=== PATIENT | male | born 1940 | race Hispanic/Latino ===

== ENCOUNTER 2021-07-16 16:11 | Outpatient (CLI) | payer MEDICARE, OTHER, SELFPAY ==
--- NOTE | ~2021-07-16 | XR_ITS ---
XR chest 2V 07/16/2021 16:44 Indication: Cough Procedure: 2 view chest Comparison: No prior studies for comparison. Findings: The lungs are hyperinflated which is consistent with, but not diagnostic of chronic obstruc tive pulmonary disease. There is coarse interstitial infiltrates of the mid and upper lungs. There is apical pleural thickening/scarring. Heart size normal. No significant pleural effusion. No pneumotho rax. Impression: 1: Coarse bilateral interstitial infiltrates of the mid and upper lungs, likely chronic. Reviewed, dictated and finalized at location A. Impression: 1: Coarse bilateral interstitial infiltrates of the mid and upper lungs, likely chronic.
--- NOTE | ~2021-07-16 | XR_ITS ---
XR lumbar spine 2-3V 07/16/2021 16:44 Indication: Back pain Procedure: 3 views lumbar spine Comparison: No prior studies for comparison. Findings: There is sacralization of L5. There is superior endplate compression fracture of L1 and bur st fracture of L4. Mild disc narrowing at L5-S1. There are mild superior endplate compression fractur es of T10 and T11. No spondylolisthesis. Osteopenia. Sacral foramen are grossly symmetric. Impression: 1: Multiple age-indeterminate fractures of the lower thoracic and lumbar spine with burst fracture at L4. Reviewed, dictated and finalized at location A. Impression: 1: Multiple age-indeterminate fractures of the lower thoracic and lumbar spine with burst fracture at L4.
== END 2021-07-16 16:12 | disposition home or self-care (01) ==
LOC: ANHIMG 16:19
PROVIDERS: PCP Emergency Medicine; Visit Provider Emergency Medicine
DX: M48.54XA Collapsed vertebra, not elsewhere classified, thoracic region, initial encounter for fracture (principal); M48.56XA Collapsed vertebra, not elsewhere classified, lumbar region, initial encounter for fracture; R91.8 Other nonspecific abnormal finding of lung field
CPT/HCPCS: 71046; 72100

== ENCOUNTER 2021-08-03 10:12 | Emergency (ER) | payer MEDICARE, SELFPAY ==
--- NOTE | ~2021-08-03 | CT_ITS ---
EXAMINATION: CT abdomen pelvis wo con EXAM DATE: 08/03/2021 15:17 INDICATION: Hematuria. TECHNIQUE: Spiral CT of the abdomen and pelvis was performed without contrast. Axial, coronal and sag ittal images were reviewed. The dose-length product (DLP) for this examination was 208.05 mGy-cm. T he exposure was tailored according to patient size (auto mA exposure control), and iterative reconstr uction (ASIR) was used as additional dose reduction technique. There is no prior study for compariso n. FINDINGS: There is no nephrolithiasis or hydronephrosis. There is an exophytic fluid density left nina al lesion measuring 2 cm consistent with cyst. Severe prostatomegaly, with the prostate measuring exp lained 5 cm transverse dimensions. The bladder is unremarkable. The liver, spleen, adrenal glands a nd pancreas are unremarkable. Gallbladder is unremarkable. No biliary obstruction. There is no ret roperitoneal or pelvic lymphadenopathy. The appendix is normal. The stomach and small bowel are unremarkable. There is expected amount of c olonic stool. No free intraperitoneal gas. The heart is normal in size. There are no pericardial or pleural effusions. Mild basilar interstitial lung disease. Chronic burst fractures at L2 and L4, probably unchanged compared to an x-ray from 07/16/2021, with mod erate loss of vertebral body height centrally at L2, moderate to severe loss at L4. There is 3 mm ret ropulsion superior endplate of L2. IMPRESSION: 1. No nephrolithiasis, hydronephrosis or acute intra-abdominal findings. 2. Severe prostatomegaly. 3. Mild interstitial lung disease. 4. Chronic appearing L2, L4 burst fractures. Reviewed, dictated and finalized at location A.
[2021-08-03 10:29] VITALS: BP 130/68; PULSE 111; RESP 18; TEMP 36.3; O2SAT 96
[2021-08-03 11:21] LABS: Add Urine Microscopic? YES; Appearance Urine Clear (Clear); Bilirubin Urine Negative (Negative); Blood Urine 3+ (Negative); Color Urine Yellow (Yellow); Glucose Urine UA Negative (Negative); Ketones Urine Negative (Negative); Leukocyte Esterase Ur Negative LEU/UL (Negative); Mucus Urine Rare /lpf; Nitrate Urine Negative (Negative); Protein Urine Negative (Negative); RBC Urine 21-50 /hpf (0-2); Specific Grav Ur 1.019 (1.001-1.035); Urobilinogen Urine Negative mg/dL (<2.0); WBC Urine 0-3 /hpf
--- NOTE | 2021-08-03 14:22 | ED.GENADULT ---
HPI - General Adult General Chief complaint: Urogenital-Male Stated complaint: Blood in Urine Time Seen by Provider: 08/03/21 14:21 Source: patient and family (daughter is translating) Mode of arrival: ambulatory Limitations: no limitations History of Present Illness HPI narrative: 81-year-old male who is here for urinary burning and frequency. He was recently treated for urinary tract infection by his primary care physician, he was treated with Macrobid. He states that that did help somewhat but the symptoms have persisted. He denies any flank pain or bladder pain and he states that he does see some blood in his urine occasionally. Denies any fever chills or bowel dysfunction. Onset (ago): week(s) Associated symptoms: denies other symptoms Related Data Allergies Allergy/AdvReac Type Severity Reaction Status Date / Time No Known Allergies Allergy Verified 08/03/21 15:57 Review of Systems Review of Systems: All systems reviewed & are unremarkable except as noted in HPI and below Exam Const: General: no acute distress and alert Orientation/consciousness: patient oriented x3 HENMT: Mouth: Yes moist mucous membranes Eyes: Pupils: Equal, round and reactive pupils present Resp: Effort & Inspection: normal respiratory effort Auscultation: clear to auscultation bilaterally Cardio: Rate: regular rate Rhythm: regular rhythm GI: GI Palp: Yes Soft to palpation Auscultation: normal bowel sounds : General: Yes bladder normal to palpation Back/Spine/Pelvis: Back: no CVA tenderness Skin: General skin exam: normal color Neuro: General: patient oriented x3 and moves all extremities Extrem: General: normal to inspection Psych: Mental Status: mental status grossly normal Course Course Emergency Course: CT shows significant prostatomegaly. This problem was discussed with the patient. Prior to going to CT. Will treat with Flomax and Bactrim as he still has urinary pain and this has better prostate penetration. They do have a recommendation for a urologist from their primary care and will make an appointment this week. Vital Signs Vital signs: Vital Signs Temperature 36.3 C L 08/03/21 10:29 Pulse Rate 111 H 08/03/21 10:29 Respiratory Rate 18 08/03/21 10:29 Blood Pressure 130/68 08/03/21 10:29 Pulse Oximetry 96 08/03/21 10:29 Temperature 36.3 C L 08/03/21 10:29 Pulse Rate 111 H 08/03/21 10:29 Respiratory Rate 18 08/03/21 10:29 Blood Pressure 130/68 08/03/21 10:29 Pulse Oximetry 96 08/03/21 10:29 Medical Decision Making Vital Signs Vital Signs: Vital Signs Temperature 36.3 C L 08/03/21 10:29 Pulse Rate 111 H 08/03/21 10:29 Respiratory Rate 18 08/03/21 10:29 Blood Pressure 130/68 08/03/21 10:29 Pulse Oximetry 96 08/03/21 10:29 Temperature 36.3 C L 08/03/21 10:29 Pulse Rate 111 H 08/03/21 10:29 Respiratory Rate 18 08/03/21 10:29 Blood Pressure 130/68 08/03/21 10:29 Pulse Oximetry 96 08/03/21 10:29 Lab Data Labs: Lab Results 08/03/21 Range/Units 10:27 Urine Color Yellow (Yellow) Urine Appearance Clear (Clear) Urine pH 6.0 (5.0-9.0) Ur Specific [place] 1.019 (1.001-1.035) Urine Protein Negative (Negative) mg/dL Urine Glucose (UA) Negative (Negative) mg/dL Urine Ketones Negative (Negative) mg/dL Ur Blood (Man) 3+ H (Negative) Urine Nitrate Negative (Negative) Urine Bilirubin Negative (Negative) Urine Urobilinogen Negative (<2.0) mg/dL Leukocyte Esterase Rfl Negative (Negative) SHILA/UL Urine RBC 21-50 H (0-2) /hpf Urine WBC 0-3 /hpf Urine Mucus Rare /lpf Discharge Plan Discharge Clinical Impression: Acute prostatitis with hematuria Patient Disposition: Home, Self-Care Condition: Stable Instructions: Antibiotic Form, Prostatitis (ED), Enlarged Prostate (BPH) (ED) Additional Instructions: Take both medications as directed. Drink plenty of water. Follow-up with ur
[2021-08-03 15:39] LABS: Anion Gap 9 mmol/L (8-16); Blood Urea Nitrogen 18 mg/dL (9-20); Calcium 9.1 mg/dL (8.4-10.2); Carbon Dioxide 26 mmol/L (22-30); Chloride 106 mmol/L (98-107); Estimated CRCL calculation 61 ml/min; Estimated Glomerular Filt Rate > 60; Glucose 94 mg/dL (65-110); Potassium 3.9 mmol/L (3.4-5.0); Sodium 141 mmol/L (137-145)
[2021-08-03 15:40] LABS: Basophils Absolute Auto 0.1 K/mm3 (0.0-0.1); Basophils Percent Auto 0.7 % (0.2-1.2); Eosinophils Absolute Auto 0.3 K/mm3 (0-0.3); Eosinophils Percent Auto 4.5 % (0-4.4); Hemoglobin 14.2 g/dL (14.0-18.0); Immature Granulocyte Absolute 0.02 K/mm3 (0.00-0.031); Immature Granulocyte Percent A 0.3 % (0-0.5); Lymphocytes Absolute Auto 2.31 K/mm3 (0.9-3.2); Lymphocytes Percent Auto 34.5 % (18.3-44.2); Mean Corpuscular HGB Conc 34.6 g/dl (32-36); Mean Corpuscular Hemoglobin 32.1 pg (26-34); Mean Corpuscular Volume 92.8 fl (80-100); Mean Platelet Volume 9.6 fl (7.4-10.4); Monocytes Absolute Auto 0.6 K/mm3 (0.1-0.6); Monocytes Percent Auto 8.4 % (2.6-8.5); Neutrophils Absolute Auto 3.5 K/mm3 (1.3-6.7); Neutrophils Percent Auto 51.6 % (45.5-73.1); Platelet Count Result 187 k/mm3 (150-375); Red Blood Count 4.42 M/mm3 (4.6-6.20); Red Cell Distribution Width 13.4 % (11.5-14.5); White Blood Count 6.7 K/mm3 (4.5-10.0)
[2021-08-03 16:30] VITALS: BP 122/79; PULSE 70; RESP 16; O2SAT 100
== END 2021-08-03 16:30 | disposition home or self-care (01) ==
PROVIDERS: Physician Assistant; Emergency Provider Emergency Medicine; PCP Emergency Medicine
DX: N41.9 Inflammatory disease of prostate, unspecified (principal); R31.9 Hematuria, unspecified
CPT/HCPCS: 36415; 74176; 80048; 81001; 85025; 99284

== ENCOUNTER 2021-08-07 19:33 | Emergency (ER) | payer MEDICARE, SELFPAY ==
[2021-08-07 20:04] VITALS: BP 129/63; PULSE 87; RESP 20; TEMP 36.6; O2SAT 97
--- NOTE | 2021-08-08 02:14 | ED_ITS ---
HPI - Male Genitourinary General Chief complaint: Urogenital-Male Stated complaint: difficulty urinating Time Seen by Provider: 08/08/21 01:31 History of Present Illness HPI Narrative: Patient is an 81-year-old male who presents ER with urinary frequency and urgency. Ongoing over the last month. Was seen in the ER several days ago and started on Flomax and Macrobid. No fevers or chills or sweats. Occasional dysuria. Endorses nocturia. Related Data Allergies Allergy/AdvReac Type Severity Reaction Status Date / Time No Known Allergies Allergy Verified 08/08/21 02:15 Review of Systems Review of Systems: All systems reviewed & are unremarkable except as noted in HPI and below Constitutional: Constitutional: Denies chills, Denies fever(s) and Denies weakness Gastrointestinal: Gastrointestinal: Denies abdominal pain, Denies nausea and Denies vomiting Genitourinary: Genitourinary: Denies hematuria, Reports oliguria, Reports dysuria and Reports urinary frequency Musculoskeletal: Musculoskeletal: Denies back pain and Denies muscle cramps PMFSH Past Medical History Medical History (Updated 08/08/21 @ 02:17 by Nilo Heredia MD) Enlarged prostate Surgical History Surgical History (Updated 08/08/21 @ 02:15 by Nilo Heredia MD) No pertinent past surgical history Exam Narrative: GENERAL: Well-appearing, well-nourished, and in no acute distress. HEAD: Normocephalic, atraumatic. ENT: Mucous membranes moist. ABDOMEN: Soft, nontender, nondistended. : Normal-appearing external genitalia with uncircumcised penis without urethral discharge. No testicular swelling or tenderness. EXTREMITIES: Normal range of motion. No edema. NEURO: Alert and oriented x3. PSYCH: Normal mood and affect. Course Course Emergency Course: Will give urology referral. Continue to take Flomax and Bactrim. Bladder scan showed no evidence of urinary retention. Vital Signs Vital signs: Vital Signs Temperature 97.9 F 08/07/21 20:04 Pulse Rate 87 08/07/21 20:04 Respiratory Rate 20 08/07/21 20:04 Blood Pressure 129/63 08/07/21 20:04 Pulse Oximetry 97 08/07/21 20:04 Temperature 97.9 F 08/07/21 20:04 Pulse Rate 87 08/07/21 20:04 Respiratory Rate 20 08/07/21 20:04 Blood Pressure 129/63 08/07/21 20:04 Pulse Oximetry 97 08/07/21 20:04 Discharge Plan Discharge Clinical Impression: Enlarged prostate Patient Disposition: Home, Self-Care Condition: Stable Instructions: Enlarged Prostate (BPH) (ED) Additional Instructions: Return to the ER if you are unable to urinate, you have fever over 100.4 ?F, you have additional concerns. Contact the urology office to schedule close follow- up. Continue to take your Flomax. Prescriptions: No Action sulfamethoxazole-trimethoprim [Bactrim DS] 800-160 mg tablet 1 tablet PO Q12H Qty: 10 RF: 0 tamsulosin [Flomax] 0.4 mg capsule 0.4 mg PO HS Qty: 30 RF: 0 Follow-up/Referrals: Micaela eLon MD [Physician] - 1 Week Phill Longo MD [Primary Care Provider] -
[2021-08-08 02:35] VITALS: BP 125/70; PULSE 70; RESP 14; O2SAT 98
== END 2021-08-08 02:33 | disposition home or self-care (01) ==
LOC: ANHED 08-08 02:17
PROVIDERS: Emergency Provider Emergency Medicine; PCP Emergency Medicine
DX: N40.0 Benign prostatic hyperplasia without lower urinary tract symptoms (principal)
CPT/HCPCS: 99282

== ENCOUNTER 2021-12-25 15:56 | Emergency (ER) | payer OTHER, SELFPAY ==
[2021-12-25 16:05] VITALS: BP 135/70; PULSE 93; RESP 18; TEMP 36.6; O2SAT 99
--- NOTE | 2021-12-25 16:05 | ED.MALEGU ---
HPI - Male Genitourinary General Chief complaint: Urogenital-Male Stated complaint: uti Time Seen by Provider: 12/25/21 16:05 Source: patient and RN notes reviewed Mode of arrival: ambulatory Limitations: no limitations and language barrier (helix coil winder via phone, Nicholas) History of Present Illness HPI Narrative: 81-year-old male presents to the [facility] with complaints of burning when urinating and blood in his urine. States the helix coil winder that he was seen at another hospital. Has been taking his home medications Flomax and Proscar. States that he thinks he has an urinary tract infection because of the blood and the frequency and urgency. Denies any abdominal pain, nausea, vomiting. No fevers. States he seen a urologist in the past MD Complaint: dysuria and other Related Data Home Medications Medication Instructions Recorded Confirmed finasteride 5 mg PO DAILY 12/25/21 12/25/21 Allergies Allergy/AdvReac Type Severity Reaction Status Date / Time No Known Allergies Allergy Verified 12/25/21 16:10 Review of Systems Review of Systems: All systems reviewed & are unremarkable except as noted in HPI and below Constitutional: Constitutional: Reports no additional constitutional complaints, Denies chills and Denies fever(s) Eyes: Eyes: Reports no additional eye complaints ENT: Reports system reviewed and no additional complaints, except as documented Cardiovascular: Cardiovascular: Reports no additional cardiovascular complaints Respiratory: Respiratory: Reports no additional respiratory complaints Gastrointestinal: Gastrointestinal: Reports no additional gastrointestinal complaints Genitourinary: Genitourinary: Reports as per HPI, Reports hematuria, Denies testicular pain, Reports urinary frequency and Reports urinary urgency Musculoskeletal: Musculoskeletal: Reports no additional musculoskeletal complaints Integumentary/Breasts: Skin/Breast: Reports system reviewed and no additional complaints, except as docu Neurologic: Reports system reviewed and no additional complaints, except as documented Psychiatric: Psychiatric: Reports no additional psychiatric complaints Allergic/Immunologic: Allergic/Immunologic: Reports no additional allergic/immunologic complaints PMFSH Past Medical History Medical History Enlarged prostate Surgical History Surgical History No pertinent past surgical history Comments At the time of my signature, I reviewed and agree with the nursing past medical, surgical, social, and family history. There is no relevant family history pertinent to the patient complaint. Exam Const: General: healthy appearing, no acute distress and alert Nutritional Appearance: well nourished Orientation/consciousness: patient oriented x3 Limitations: no limitations HENMT: Head: normal to inspection Ears: external ears normal Eyes: Pupils: Equal, round and reactive pupils present Neck: Neck: normal visual inspection, no lymphadenopathy and no meningeal signs Chest: Chest palpation & inspection: normal inspection of the chest Resp: Effort & Inspection: normal respiratory effort and no use of accessory muscles Auscultation: clear to auscultation bilaterally, no crackles, no rales, no rhonchi and no wheezes Cardio: Rate: regular rate Rhythm: regular rhythm GI: GI Palp: Yes Soft to palpation and No Tenderness to palpation present (GI) : General: Yes no CVA tenderness Back/Spine/Pelvis: Back: no CVA tenderness Skin: General skin exam: normal color Rashes: no rashes Wounds: no wounds Neuro: General: patient oriented x3, moves all extremities, no meningeal signs and no focal motor deficits Cranial nerves: Yes Equal, round and reactive pupils present Speech: normal speech Gait exam (Neuro): Normal gait present Extrem: General: normal to inspection Psych: Appearance: grossly normal and we
== END 2021-12-25 16:35 | disposition home or self-care (01) ==
PROVIDERS: Emergency Provider Nurse Practitioner
DX: R31.9 Hematuria, unspecified (principal); N40.0 Benign prostatic hyperplasia without lower urinary tract symptoms
CPT/HCPCS: 81003; 99212; G0463

== ENCOUNTER 2024-10-04 12:00 | Inpatient (IN) | payer OTHER, SELFPAY ==
[2024-10-04] VITALS (10 sets, daily range): BP systolic 113–139; BP diastolic 67–84; PULSE 77–100; RESP 16–23; TEMP 36.8; O2SAT 96–100; BMI 19.3; BMI 22.6
--- NOTE | ~2024-10-04 | CT_ITS ---
EXAMINATION: CT abdomen pelvis w con DATE: 10/04/2024 13:24 INDICATION: Generalized abdominal pain. TECHNIQUE: Computed tomography (CT) of the abdomen and pelvis was performed with 100 mL Omnipaque-350 intravenous contrast. Automated exposure control and iterative reconstruction technique were employe d. The dose-length product was 222.93 mGy-cm. COMPARISON: 08/03/2021 FINDINGS: No significant change in peripheral irregular septal line thickening and associated honeycombing in t he bilateral lower lungs consistent with usual interstitial pneumonia (UIP) pattern chronic interstit ial lung disease. Heart size is normal. Atherosclerotic coronary artery calculi size. No pericardial or pleural effusion. There are a few subcentimeter low-attenuation hepatic cysts. Gallbladder, spleen , pancreas, bilateral adrenal glands and kidneys are normal. No abnormal bowel wall thickening or obs truction. Normal appendix. Bladder is normal. Prostatomegaly measuring 5.9 x 4.4 cm. No free intraper itoneal gas or fluid. No pathologically enlarged abdominal or pelvic lymphadenopathy. Chronic T8 compression fracture with change of prior vertebroplasty. Chronic appearing T10 compressio n fracture with 60% central vertebral body height loss and T11 burst with 80% central vertebral body height loss and 4 mm retropulsion resulting in mild central canal stenosis at this level. No interval changes in additional chronic L2 burst fracture with 60% central vertebral body height loss, 4 mm re tropulsion resulting in mild central canal stenosis and T4 burst fracture with 80% central vertebral body height loss. IMPRESSION: 1. No acute intra-abdominal/pelvic process. 2. 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 3. Prostatomegaly. 4. Multiple chronic compression and burst fractures in the lumbar and lower thoracic spine. Reviewed, dictated and finalized at location [facility] IMPRESSION: 1. No acute intra-abdominal/pelvic process. 2. 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 3. Prostatomegaly. 4. Multiple chronic compression and burst fractures in the lumbar and lower tho racic spine.
--- NOTE | 2024-10-04 12:15 | ED_ITS ---
HPI - Abdominal Pain General Chief Complaint: Abdominal Pain Stated Complaint: abdominal pain Time Seen by Provider: 10/04/24 12:10 Source: patient and family Mode of arrival: ambulatory Limitations: no limitations History of Present Illness HPI narrative: 84 years old male came to the ED complaining of epigastric pain, nausea and frequent vomiting and poor p.o. intake for the last [address] [facility] post kyphoplasty at [facility] 3 weeks ago history of prostatic enlargement. Patient denies any fever or chills, diarrhea or constipation. THE ABOVE HISTORY PROVIDED BY PATIENT'S DAUGHTER WHO SPEAKS BROKEN DOMINICAN AND HIS GRANDDAUGHTER WHO SPEAKS FLUENT DOMINICAN. DAUGHTER IS TELLING ME THAT PATIENT BEEN SEVERELY DEPRESSED LATELY. AND WOULD LIKE TO START HIM ON ANTI DEPRESSION MEDICATION. Related Data Home Medications Medication Instructions Recorded Confirmed finasteride 5 mg tablet 5 mg PO DAILY 12/25/21 12/25/21 Allergies Allergy/AdvReac Type Severity Reaction Status Date / Time No Known Allergies Allergy Verified 10/04/24 12:01 Review of Systems Review of Systems: All systems reviewed & are unremarkable except as noted in HPI and below PMFSH Past Medical History Medical History Enlarged prostate Surgical History Surgical History History of kyphoplasty (~09/2024) @[facility] Exam Narrative: General appearance: Well-developed, well-nourished Skin: Normal color Head: Normocephalic, nontraumatic Eyes: Clear conjunctiva ENT: Oropharynx normal, ears normal, nose normal Neck: Supple, nontender Chest and respiratory: Airway patent, no respiratory distress, no accessory muscle use Heart: Regular rate/rhythm Abdomen: Soft, nontender, no organomegaly, quiet bowel sounds Vascular: Normal peripheral pulses, normal capillary refill. Musculoskeletal: Normal range of motion, nontender back Neurologic: Alert and oriented ?3, IT SUPPORT SPECIALIST is normal as tested, no gross motor deficit Course Consultations Consultation #1: DR OBREGON ADMIT PATIENT FOR OBSERVATION Date: 10/04/24 Time: 14:54 Vital Signs Vital signs: Vital Signs Temperature 36.8 C 10/04/24 12:05 Pulse Rate 100 10/04/24 12:05 Respiratory Rate 16 10/04/24 12:05 Blood Pressure 113/67 10/04/24 12:05 Pulse Oximetry 96 10/04/24 12:05 Temperature 36.8 C 10/04/24 12:05 Pulse Rate 82 10/04/24 14:02 Respiratory Rate 20 10/04/24 14:02 Blood Pressure 120/69 10/04/24 14:02 Pulse Oximetry 100 10/04/24 14:02 MDM - Abdominal Pain MDM Narrative Medical decision making narrative: 84 YEARS OLD, DOES NOT SPEAK DOMINICAN, , COMPLAINING OF EPIGASTRIC PAIN, POOR APPETITE, NAUSEA AND VOMITING OVER THE LAST 48 HOURS VITAL SIGNS ARE STABLE PHYSICAL EXAMINATION CONSISTENT WITH EPIGASTRIC TENDERNESS, MAROON-COLORED STOOL, GUAIAC POSITIVE DIFFERENTIAL DIAGNOSIS INCLUDES GI BLEED, ELECTROLYTE IMBALANCE, DEHYDRATION, DEPRESSION, PANCREATITIS, COLITIS, CHOLECYSTITIS, INTRA-ABDOMINAL MALIGNANCY BLOOD WORKUP TODAY INCLUDES CBC, CMP, LIPASE SHOWED HEMOGLOBIN OF 13.9, PLATELET 398, SODIUM 130 OTHERWISE INSIGNIFICANT URINALYSIS SHOWED 2+ BLOOD. PATIENT HAVE HISTORY OF PROSTATIC ENLARGEMENT WHO HAD, FREQUENT URINATION CT ABDOMEN AND PELVIS WITH IV CONTRAST SHOWED NO ACUTE INTRA-ABDOMINAL PROCESS ADMIT TO HOSPITALIST, DISCUSSED WITH DR. OBREGON Differential Diagnosis Differential diagnosis: Likely other ( ABOVE) Medical Records Attestation: I reviewed the patient's medical records. Lab Data Attestation: I reviewed the patient's lab results. 10/04/24 12:28 10/04/24 12:28 Labs: Lab Results 10/04/24 10/04/24 Range/Units 12:28 12:56 WBC 8.0 (4.5-10.0) K/mm3 RBC 4.43 L (4.6-6.20) M/mm3 Hgb 13.9 L (14.0-18.0) g/dL Hct 39.4 L (42.0-52.0) % MCV 88.9 (80-100) fl MCH 31.4 (26-34) pg MCHC 35.3 (32-36) g/dl RDW 13.8 (11.5-14.5) % Plt Count 398 H D (150-375) k/mm3 MPV 8.4 (7.4-10.4) fl Immature Gran % (Auto) 0.4 (0-0.5) % Neut % (Auto) 79.8 H (45.5-73.1) % Lymph % (Auto) 8.8 L (18.3-44.2) % Edgar % (Auto) 9.3 H (2.6-8.5) % Eos % (Auto) 1.3 (0-4.4) % Baso % (Auto) 0.4 (0.2-1.2) % Lymph # (Auto) 0.70 L (0.9-3.2) K/mm3 Edgar # (Auto) 0.7 H (0.1-0.6) K/mm3 Eos # (Auto) 0.1 (0-0.3) K/mm3 Baso # (Auto) 0.0 (0.0-0.1) K/mm3 Abs Immat Gran (auto) 0.03 (0.00-0.031) K/mm3 Absolute Neuts (auto) 6.4 (1.3-6.7) K/mm3 Absolute Nucleated RBC 0.000 (0.0-0.012) K/mm3 Nucleated RBC % 0.0 (0.0-0.2) % Sodium 130 L (137-145) mmol/L Potassium 4.1 (3.4-5.0) mmol/L Chloride 95 L (98-107) mmol/L Carbon Dioxide 26 (22-30) mmol/L Anion Gap 9 (4-12) mmol/L BUN 13 D (9-20) mg/dL Creatinine 0.50 L (0.7-1.3) mg/dL Estim Creat Clear Calc Not Reportable Estimated GFR > 60 (59 - ) Glucose 117 H (65-110) mg/dL Lactic Acid 1.3 (0.7-2.0) mmol/L Calcium 9.0 (8.4-10.2) mg/dL Total Bilirubin 0.7 (0.2-1.3) mg/dL AST 45 (17-59) U/L ALT 23 (6-50) U/L Alkaline Phosphatase 122 (38-126) U/L Total Protein 8.0 (6.3-8.2) g/dL Albumin 4.0 (3.5-5.1) g/dL Lipase 112 (23-300) U/L Urine Color Yellow (Yellow) Urine Appearance Cloudy H (Clear) Urine pH 7.0 (5.0-9.0) Ur Specific [place] 1.030 (1.001-1.035) Urine Protein 1+ H (Negative) mg/dL Urine Glucose (UA) Negative (Negative) mg/dL Urine Ketones Negative (Negative) mg/dL Ur Blood (Man) 2+ H (Negative) Urine Nitrate Negative (Negative) Urine Bilirubin Negative (Negative) Urine Urobilinogen 1.0 (<2.0) mg/dL Leukocyte Esterase Rfl Negative (Negative) SHILA/UL Urine RBC 51-100 H (0-2) /hpf Urine WBC 0-5 (0-3) /hpf Ur Squamous Epith Cells None seen (Few) /hpf Urine Bacteria None seen /hpf Urine Casts 0-2 Influenza A (RT-PCR) Negative (Negative) Influenza B (RT-PCR) Negative (Negative) RSV (RT-PCR) Negative (Negative) SARS-CoV-2 RNA (RT-PCR) Negative (Negative) Imaging Data Radiologist's impression: ITS Impressions Abdomen/Pelvis CT 10/04/24 13:36 IMPRESSION: 1. No acute intra-abdominal/pelvic process. 2. 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 3. Prostatomegaly. 4. Multiple chronic compression and burst fractures in the lumbar and lower thoracic spine. Critical Care Time Critical Care Time Critical Care Time: Yes Total Critical Care Time: 30 Discharge Plan Discharge Clinical Impression: Abdominal pain, GI bleed, Depression, Acute hyponatremia, Hematuria Patient Disposition: Still a Patient Condition: Stable
[2024-10-04 12:34] LABS: Basophils Percent Auto 0.4 % (0.2-1.2); Eosinophils Absolute Auto 0.1 K/mm3 (0-0.3); Eosinophils Percent Auto 1.3 % (0-4.4); Hematocrit 39.4 % (42.0-52.0); Hemoglobin 13.9 g/dL (14.0-18.0); Immature Granulocyte Absolute 0.03 K/mm3 (0.00-0.031); Immature Granulocyte Percent A 0.4 % (0-0.5); Lymphocytes Percent Auto 8.8 % (18.3-44.2); Mean Corpuscular HGB Conc 35.3 g/dl (32-36); Mean Corpuscular Hemoglobin 31.4 pg (26-34); Mean Corpuscular Volume 88.9 fl (80-100); Mean Platelet Volume 8.4 fl (7.4-10.4); Monocytes Absolute Auto 0.7 K/mm3 (0.1-0.6); Monocytes Percent Auto 9.3 % (2.6-8.5); Neutrophils Absolute Auto 6.4 K/mm3 (1.3-6.7); Neutrophils Percent Auto 79.8 % (45.5-73.1); Platelet Count Result 398 k/mm3 (150-375); Red Blood Count 4.43 M/mm3 (4.6-6.20); Red Cell Distribution Width 13.8 % (11.5-14.5)
[2024-10-04 12:42] LABS: Alanine Aminotransferase 23 U/L (6-50); Alkaline Phosphatase 122 U/L (38-126); Anion Gap 9 mmol/L (4-12); Aspartate Amino Transferase 45 U/L (17-59); Bilirubin,Total 0.7 mg/dL (0.2-1.3); Blood Urea Nitrogen 13 mg/dL (9-20); Carbon Dioxide 26 mmol/L (22-30); Chloride 95 mmol/L (98-107); Estimated Glomerular Filt Rate > 60; Glucose 117 mg/dL (65-110); Lactic Acid Reflex 1.3 mmol/L (0.7-2.0); Lipase 112 U/L (23-300); Potassium 4.1 mmol/L (3.4-5.0); Sodium 130 mmol/L (137-145)
[2024-10-04] MEDS: SODIUM CHLORIDE 0.9% IV 1,000 ML 999 ML IV CONT (12:53)
[2024-10-04] MEDS: ONDANSETRON INJ 4 MG/2 ML VIAL IV PUSH (12:53)
[2024-10-04 13:09] LABS: Add Urine Microscopic? YES; Appearance Urine Cloudy (Clear); Bacteria Urine None Seen /hpf; Bilirubin Urine Negative (Negative); Blood Urine 2+ (Negative); Color Urine Yellow (Yellow); Glucose Urine UA Negative (Negative); Ketones Urine Negative (Negative); Leukocyte Esterase Ur Negative LEU/UL (Negative); Nitrate Urine Negative (Negative); Non Pathogenic Casts 0-2; Protein Urine 1+ mg/dL (Negative); RBC Urine 51-100 /hpf (0-2); Squamous Epithelial Cell Urine None Seen /hpf (Few); WBC Urine 0-5 /hpf (0-3)
[2024-10-04 13:13] LABS: Influenza A QL RT-PCR Negative (Negative); Influenza B QL RT-PCR Negative (Negative); RSV RNA, RT-PCR Negative (Negative); SARS-CoV-2 RNA PCR Negative (Negative)
[2024-10-04] MEDS: PANTOPRAZOLE SODIUM IV 40 MG VIAL IV PUSH ×2 (14:54→19:37)
--- NOTE | 2024-10-04 15:02 | P.HP_ITS ---
H&P: HPI History of Present Illness Date/Time: 10/04/24 15:02 Chief Complaint: Nausea, Vomiting Narrative: 84 y/o M presents here with nausea and vomiting with PMH of enlarged prostate and recent kyphoplasty (3 weeks ago at [facility]). The patient presents here from home for further evaluation of nausea, vomiting, epigastric pain, and diarrhea. Patient is [place]ian-speaking. He and his daughter provided the following history, the patient reports onset of nausea, vomiting, diarrhea approximately 3 days ago. Emesis has been nonbloody and nonbilious. Did not have coffee ground appearance. Diarrhea also started on Tuesday. He had 2 bowel movements Tuesday, unable to quantify further. THen developed bleeding per rectum on Tuesday. Unclear if it was a large or small amount. No history of GI bleed. No alcohol use. No significant ibuprofen use. Has never undergone a colonoscopy. Due to nausea and vomiting patient has had poor p.o. intake since onset. Denies change in low urinary output. No daughter is also voicing concern that the patient has been severely depressed at late in for and would like discuss starting the patient on an antidepressant. She states he has been more quiet. Daughter does not believe he has had any weight loss or night sweats. Initial VS at presentation: 0 98.3? F, HR 100, RR 16, 113/67, and 96% on RA. ED workup showed: No leukocytosis, hemoglobin 13.9, platelet count 398, sodium 130, 2 creatinine 0.5 and GFR >60, glucose 117, lactic 3 3, and UA not suspicious for infection. Viral PCR negative. CT of the abdomen/pelvis showed no acute intra-abdominal/pelvic process, chronic interstitial lung disease at the bilateral lung bases, prostatomegaly, multiple chronic compression and burst fractures in lumbar and lower thoracic spine. Review of Systems Review of Systems: All systems reviewed & are unremarkable except as noted in HPI and below [facility] Past Medical History Medical History Enlarged prostate Surgical History Surgical History History of kyphoplasty (~09/2024) @[facility] Social History Social History Smoking packs per day: 1 Smoking cigarettes per day: 20.0 Years smoked: 60 Smoking pack-years: 60.00 Smoking status: Current every day smoker Alcohol intake: never Substance use: never Do You Feel Safe in your Home?: Yes Lack of Transportation: No Lack of Food: Never True Current Housing: I Have Housing Concerned About Future Housing: No Difficulty Paying Gas/Electric Bills: No Difficulty Paying for Meds: No Currently Unemployed: No Education: Don't Know Difficulty w/ Childcare or Family Care: No Spiritual care concerns: No Meds Home Medications and Allergies Home Medications Medication Instructions Recorded Confirmed Type tamsulosin 0.4 mg capsule (Flomax) 0.4 mg PO HS #30 caps 08/03/21 10/04/24 Rx finasteride 5 mg tablet 5 mg PO DAILY 12/25/21 10/04/24 History alendronate 70 mg tablet 70 mg PO WEEKLY 10/04/24 10/04/24 History ergocalciferol (vitamin D2) 1,250 1,250 mcg PO WEEKLY 10/04/24 10/04/24 History mcg (50,000 unit) capsule (Vitamin D2) Allergies Allergy/AdvReac Type Severity Reaction Status Date / Time No Known Allergies Allergy Verified 10/04/24 12:01 Vital Signs Vital Signs - 24 hr 10/04/24 12:05 10/04/24 14:02 Temperature 98.3 F Pulse Rate 100 82 Respiratory Rate 16 20 Blood Pressure 113/67 120/69 Pulse Oximetry 96 100 Exam Const: General: comfortable and no acute distress Other: , male, cachectic appearance, frail, elderly HENMT: Face/Nose/Sinus: Normal nares present Mouth: Yes dry mucous membranes Eyes: General: appearance normal, both eyes and all related structures Sclera: sclerae normal Pupils: Equal, round and reactive pupils present EOM: EOMs intact bilaterally Resp: Effort & Inspection: normal respiratory effort Auscultation: clear to auscultation bilaterally Cardio: Rate: regular rate Rhythm: regular rhythm Other: S1-S2 present without murmur, rub, ectopy GI: Other: Abdomen soft, nondistended, nontender. Normoactive bowel sounds in all quadrants. Skin: General skin exam: normal color and no rashes or lesions noted Wounds: no wounds Neuro: Speech: normal speech Motor exam (neuro): 5/5 motor strength present throughout Sensory Exam: normal sensation Other: A&O x4 Extrem: General: normal to inspection Psych: Mental Status: mental status grossly normal Affect: normal affect Other: Fair insight and judgment H&P: Results Labs Labs: Short CBC 10/04/24 Range/Units 12:28 WBC 8.0 (4.5-10.0) K/mm3 Hgb 13.9 L (14.0-18.0) g/dL Hct 39.4 L (42.0-52.0) % Plt Count 398 H D (150-375) k/mm3 BMP 10/04/24 12:28 Sodium 130 L Potassium 4.1 Chloride 95 L Carbon Dioxide 26 BUN 13 D Creatinine 0.50 L Glucose 117 H Calcium 9.0 Liver Function 10/04/24 Range/Units 12:28 Total Bilirubin 0.7 (0.2-1.3) mg/dL AST 45 (17-59) U/L ALT 23 (6-50) U/L Alkaline Phosphatase 122 (38-126) U/L Albumin 4.0 (3.5-5.1) g/dL Urine 10/04/24 Range/Units 12:56 Urine Color Yellow (Yellow) Urine Appearance Cloudy H (Clear) Urine pH 7.0 (5.0-9.0) Ur Specific [place] 1.030 (1.001-1.035) Urine Protein 1+ H (Negative) mg/dL Urine Glucose (UA) Negative (Negative) mg/dL Assessment and Plan Assessment and plan (1) GI bleed: Qualifiers: GI bleed type/associated pathology: unspecified gastrointestinal hemorrhage type Qualified Code(s): K92.2 - Gastrointestinal hemorrhage, unspecified Code(s): K92.2 - Gastrointestinal hemorrhage, unspecified Status: Acute Assessment and Plan: - no findings on CT abd/pelvis as etiology for GI bleed - ETOH use: none - Hgb 13.9, trend - started on Pantoprazole 40 mg BID - GI consulted, awaiting recs - NPO at midnight, clear liquids in interim (2) Abdominal pain: Qualifiers: Abdominal location: epigastric Qualified Code(s): R10.13 - Epigastric pain Code(s): R10.9 - Unspecified abdominal pain Status: Acute Assessment and Plan: - CT abdomen/pelvis: 1. No acute intra-abdominal/pelvic process. 2. 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 3. Prostatomegaly. 4. Multiple chronic compression and burst fractures in the lumbar and lower thoracic spine. - associated nausea and vomiting, antiemetics p.r.n. - given maroon bowel movements and positive Hemoccult, suspect GI bleed as etiology for nausea/vomiting & epigastric pain. see above. - GI consulted (3) Depression: Qualifiers: Depression Type: unspecified Qualified Code(s): F32.A - Depression, unspecified Code(s): F32.A - Depression, unspecified Status: Acute Assessment and Plan: - daughter feels patient has been more depressed, referred to PCP for initiation of depression medications Plan Diet: Clear liquids, NPO midnight GI Prophylaxis: Pantoprazole b.i.d. DVT Prophylaxis: SCDs Lines: Peripheral Code Status: Full code Quality VTE Prophylaxis VTE prophylaxis: mechanical ordered Hospitalist MIPS Advance Care Plan I have confirmed that the patient's Advanced Care Plan is present, code status is documented, or surrogate decision maker is listed in patient medical record.: Yes Medication Reconciliation I have utilized all available resources to obtain, update and review the patients current medications (includes all prescriptions, OTC, herbals, cannabis, and nutritional supplements).: Yes
[2024-10-04] MEDS: BELLADONNA ALK/PHENOB ELIX 10 ML, MAG HYDROX/ALUMINUM HYD/SIMETH 30 ML, LIDOCAINE HCL 2... PO (15:42)
[2024-10-04] MEDS: SODIUM CHLORIDE 0.9% IV 1,000 ML 125 ML IV CONT (19:16)
[2024-10-04] MEDS: ACETAMINOPHEN 325 MG TABLET 650 MG PO (19:36)
[2024-10-04 20:08] LABS: Hematocrit 36.4 % (42.0-52.0); Hemoglobin 12.8 g/dL (14.0-18.0)
[2024-10-04] MEDS: TAMSULOSIN HCL 0.4 MG CAPSULE PO (22:15)
[2024-10-05] MEDS: ACETAMINOPHEN 325 MG TABLET 650 MG PO ×2 (02:20→11:28)
[2024-10-05] MEDS: SODIUM CHLORIDE 0.9% IV 1,000 ML 125 ML IV CONT ×3 (04:00→19:55)
[2024-10-05 05:31] LABS: Basophils Percent Auto 0.9 % (0.2-1.2); Eosinophils Absolute Auto 0.2 K/mm3 (0-0.3); Eosinophils Percent Auto 4.1 % (0-4.4); Hematocrit 34.3 % (42.0-52.0); Hemoglobin 11.8 g/dL (14.0-18.0); Immature Granulocyte Absolute 0.01 K/mm3 (0.00-0.031); Immature Granulocyte Percent A 0.2 % (0-0.5); Lymphocytes Absolute Auto 0.66 K/mm3 (0.9-3.2); Lymphocytes Percent Auto 15.1 % (18.3-44.2); Mean Corpuscular HGB Conc 34.4 g/dl (32-36); Mean Corpuscular Hemoglobin 31.2 pg (26-34); Mean Corpuscular Volume 90.7 fl (80-100); Mean Platelet Volume 8.6 fl (7.4-10.4); Monocytes Absolute Auto 0.7 K/mm3 (0.1-0.6); Neutrophils Absolute Auto 2.8 K/mm3 (1.3-6.7); Neutrophils Percent Auto 63.7 % (45.5-73.1); Platelet Count Result 271 k/mm3 (150-375); Red Blood Count 3.78 M/mm3 (4.6-6.20); Red Cell Distribution Width 13.8 % (11.5-14.5); White Blood Count 4.4 K/mm3 (4.5-10.0)
[2024-10-05 05:36] LABS: Alanine Aminotransferase 21 U/L (6-50); Albumin Level 3.1 g/dL (3.5-5.1); Alkaline Phosphatase 98 U/L (38-126); Anion Gap 4 mmol/L (4-12); Aspartate Amino Transferase 35 U/L (17-59); Bilirubin,Total 0.5 mg/dL (0.2-1.3); Blood Urea Nitrogen 9 mg/dL (9-20); Carbon Dioxide 25 mmol/L (22-30); Chloride 101 mmol/L (98-107); Estimated CRCL calculation 64 ml/min; Estimated Glomerular Filt Rate > 60; Glucose 97 mg/dL (65-110); Sodium 130 mmol/L (137-145)
[2024-10-05 05:39] VITALS: BP 100/56; PULSE 77; RESP 18; TEMP 36.5; O2SAT 99
--- NOTE | 2024-10-05 07:27 | PM.IMPN ---
Progress Note: A&P Assessment and Plan (1) GI bleed: Qualifiers: GI bleed type/associated pathology: unspecified gastrointestinal hemorrhage type Qualified Code(s): K92.2 - Gastrointestinal hemorrhage, unspecified Code(s): K92.2 - Gastrointestinal hemorrhage, unspecified Status: Acute Assessment and Plan: - no findings on CT abd/pelvis as etiology for GI bleed - ETOH use: none - Hgb 13.9, trend - started on Pantoprazole 40 mg BID - GI consulted EGD and colonoscopy Tuesday - ok for diet (2) Abdominal pain: Qualifiers: Abdominal location: epigastric Qualified Code(s): R10.13 - Epigastric pain Code(s): R10.9 - Unspecified abdominal pain Status: Acute Assessment and Plan: - CT abdomen/pelvis: 1. No acute intra-abdominal/pelvic process. 2. 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 3. Prostatomegaly. 4. Multiple chronic compression and burst fractures in the lumbar and lower thoracic spine. - associated nausea and vomiting, antiemetics p.r.n. - given maroon bowel movements and positive Hemoccult, suspect GI bleed as etiology for nausea/vomiting & epigastric pain. see above. - GI consulted (3) Depression: Qualifiers: Depression Type: unspecified Qualified Code(s): F32.A - Depression, unspecified Code(s): F32.A - Depression, unspecified Status: Acute Assessment and Plan: - daughter feels patient has been more depressed, referred to PCP for initiation of depression medications Plan Diet: Clear liquids, NPO midnight GI Prophylaxis: Pantoprazole b.i.d. DVT Prophylaxis: SCDs Lines: Peripheral Code Status: Full code Time Spent With Patient Time with patient: Greater than 35 minutes Subjective Date/time seen: 10/05/24 07:27 Interval history: 84 y/o M presents here with nausea and vomiting with PMH of enlarged prostate and recent kyphoplasty presents with nausea and vomiting found to GI bleed. hemoglobin slowly trending down hemoglobin slowly trending down, no need for transfusion at this time continue to monitor, blood pressure 100/56, no acute signs of bleeding Review of Systems Review of Systems: All systems reviewed & are unremarkable except as noted in HPI and below Exam Const: General: comfortable and no acute distress Other: , male, cachectic appearance, frail, elderly HENMT: Face/Nose/Sinus: Normal nares present Mouth: Yes moist mucous membranes Eyes: General: appearance normal, both eyes and all related structures Sclera: sclerae normal Pupils: Equal, round and reactive pupils present EOM: EOMs intact bilaterally Resp: Effort & Inspection: normal respiratory effort Auscultation: clear to auscultation bilaterally Cardio: Rate: regular rate Rhythm: regular rhythm Other: S1-S2 present without murmur, rub, ectopy GI: Other: Abdomen soft, nondistended, nontender. Normoactive bowel sounds in all quadrants. Skin: General skin exam: normal color and no rashes or lesions noted Wounds: no wounds Neuro: Cranial nerves: Yes Equal, round and reactive pupils present Speech: normal speech Motor exam (neuro): 5/5 motor strength present throughout Sensory Exam: normal sensation Other: A&O x4 Extrem: General: normal to inspection Psych: Mental Status: mental status grossly normal Affect: normal affect Other: Fair insight and judgment Objective Data Vital Signs Vital Signs: Vital Signs - 24 hr 10/04/24 12:05 10/04/24 14:02 10/04/24 15:43 Temperature 98.3 F Pulse Rate 100 82 85 Respiratory Rate 16 20 23 H Blood Pressure 113/67 120/69 131/76 Pulse Oximetry 96 100 100 Oxygen Delivery 10/04/24 14:15 10/04/24 14:31 10/04/24 15:01 Temperature Pulse Rate 87 90 83 Respiratory Rate 19 21 H 20 Blood Pressure 124/84 124/75 Pulse Oximetry 100 Oxygen Delivery 10/04/24 15:15 10/04/24 15:31 10/04/24 15:46 Temperature Pulse Rate 81 86 84 Respiratory Rate 20 22 H 16 Blood Pressure 121/77 131/76 139/80 Pulse Oximetry 100 96 100 Oxygen Delivery 10/04/24 16:52 10/04/24 21:37 10/04/24 20:00 Temperature 98.3 F Pulse Rate 77 Respiratory Rate 18 Blood Pressure 122/67 Pulse Oximetry 100 Oxygen Delivery Room Air Room Air 10/05/24 05:39 Temperature 97.7 F Pulse Rate 77 Respiratory Rate 18 Blood Pressure 100/56 L Pulse Oximetry 99 Oxygen Delivery Intake/Output Intake/Output: Intake & Output 10/02/24 10/03/24 10/04/24 10/05/24 23:59 23:59 23:59 23:59 Intake Total 1400 1240 Balance 1400 1240 Meds/Results Medications: Active Medications Generic Name Dose Route Start Last Admin Trade Name Freq PRN Reason Stop Dose Admin Acetaminophen 650 mg 10/04/24 15:41 10/05/24 02:20 Acetaminophen 325 Mg Tablet PO 650 mg Q6H PRN Administration Mild Pain (1-3) or Fever Hydrocodone Bitart/Acetaminophen 1 tab 10/04/24 15:41 Hydrocodone/Acetaminophen (*Crx) 5-325 Mg Tablet PO Q6H PRN Pain Rated 4-6 Alendronate Sodium 70 mg 10/09/24 06:30 Alendronate Sodium 70 Mg Tablet PO Tu@0630 ELSY Ergocalciferol 50,000 units 10/08/24 09:00 Ergocalciferol 50,000 Units Capsule PO Mo@0900 ELSY Finasteride 5 mg 10/05/24 09:00 Finasteride 5 Mg Tablet PO DAILY ELSY Sodium Chloride 1,000 mls @ 125 mls/hr 10/04/24 15:05 10/05/24 04:00 Normal Saline Iv IV CONT 125 mls/hr .Q8H ELSY Administration Morphine Sulfate 2 mg 10/04/24 15:06 Morphine Sulfate (*Crx) 2 Mg/Ml Inj IV PUSH Q4H PRN Abdominal Cramping Ondansetron HCl 4 mg 10/04/24 15:01 Ondansetron Inj 4 Mg/2 Ml Vial IV PUSH Q4H PRN Nausea Pantoprazole Sodium 40 mg 10/04/24 21:00 10/04/24 19:37 Pantoprazole Sodium Iv 40 Mg Vial IV PUSH 40 mg Q12HR ELSY Administration Tamsulosin HCl 0.4 mg 10/04/24 21:15 10/04/24 22:15 Tamsulosin Hcl 0.4 Mg Capsule PO 0.4 mg HS ELSY Administration Radiology Results: ITS Impressions Abdomen/Pelvis CT 10/04/24 13:36 IMPRESSION: 1. No acute intra-abdominal/pelvic process. 2. 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 3. Prostatomegaly. 4. Multiple chronic compression and burst fractures in the lumbar and lower thoracic spine. Labs Labs: Laboratory Results - last 24 hr 10/04/24 10/04/24 10/04/24 12:28 12:56 20:04 WBC 8.0 RBC 4.43 L Hgb 13.9 L 12.8 L Hct 39.4 L 36.4 L MCV 88.9 MCH 31.4 MCHC 35.3 RDW 13.8 Plt Count 398 H D MPV 8.4 Immature Gran % (Auto) 0.4 Neut % (Auto) 79.8 H Lymph % (Auto) 8.8 L Baker % (Auto) 9.3 H Eos % (Auto) 1.3 Baso % (Auto) 0.4 Lymph # (Auto) 0.70 L Baker # (Auto) 0.7 H Eos # (Auto) 0.1 Baso # (Auto) 0.0 Abs Immat Gran (auto) 0.03 Absolute Neuts (auto) 6.4 Absolute Nucleated RBC 0.000 Nucleated RBC % 0.0 Sodium 130 L Potassium 4.1 Chloride 95 L Carbon Dioxide 26 Anion Gap 9 BUN 13 D Creatinine 0.50 L Estim Creat Clear Calc Not Reportable Estimated GFR > 60 Glucose 117 H Lactic Acid 1.3 Calcium 9.0 Total Bilirubin 0.7 AST 45 ALT 23 Alkaline Phosphatase 122 Total Protein 8.0 Albumin 4.0 Lipase 112 Urine Color Yellow Urine Appearance Cloudy H Urine pH 7.0 Ur Specific [place] 1.030 Urine Protein 1+ H Urine Glucose (UA) Negative Urine Ketones Negative Ur Blood (Man) 2+ H Urine Nitrate Negative Urine Bilirubin Negative Urine Urobilinogen 1.0 Leukocyte Esterase Rfl Negative Urine RBC 51-100 H Urine WBC 0-5 Ur Squamous Epith Cells None seen Urine Bacteria None seen Urine Casts 0-2 Influenza A (RT-PCR) Negative Influenza B (RT-PCR) Negative RSV (RT-PCR) Negative SARS-CoV-2 RNA (RT-PCR) Negative 10/05/24 05:13 WBC 4.4 L RBC 3.78 L Hgb 11.8 L Hct 34.3 L MCV 90.7 MCH 31.2 MCHC 34.4 RDW 13.8 Plt Count 271 MPV 8.6 Immature Gran % (Auto) 0.2 Neut % (Auto) 63.7 Lymph % (Auto) 15.1 L Baker % (Auto) 16.0 H Eos % (Auto) 4.1 Baso % (Auto) 0.9 Lymph # (Auto) 0.66 L Baker # (Auto) 0.7 H Eos # (Auto) 0.2 Baso # (Auto) 0.0 Abs Immat Gran (auto) 0.01 Absolute Neuts (auto) 2.8 Absolute Nucleated RBC 0.000 Nucleated RBC % 0.0 Sodium 130 L Potassium 4.0 Chloride 101 Carbon Dioxide 25 Anion Gap 4 BUN 9 Creatinine 0.60 L Estim Creat Clear Calc 64 Estimated GFR > 60 Glucose 97 Lactic Acid Calcium 8.0 L Total Bilirubin 0.5 AST 35 ALT 21 Alkaline Phosphatase 98 Total Protein 6.0 L Albumin 3.1 L Lipase Urine Color Urine Appearance Urine pH Ur Specific [place] Urine Protein Urine Glucose (UA) Urine Ketones Ur Blood (Man) Urine Nitrate Urine Bilirubin Urine Urobilinogen Leukocyte Esterase Rfl Urine RBC Urine WBC Ur Squamous Epith Cells Urine Bacteria Urine Casts Influenza A (RT-PCR) Influenza B (RT-PCR) RSV (RT-PCR) SARS-CoV-2 RNA (RT-PCR) Quality VTE Prophylaxis VTE prophylaxis: mechanical ordered If No VTE Prophylaxis Answer both mechanical and pharmacologic: Reason no pharmacologic proph: medical contraindication active bleeding/bleeding risk Hospitalist MIPS Advance Care Plan I have confirmed that the patient's Advanced Care Plan is present, code status is documented, or surrogate decision maker is listed in patient medical record.: Yes Medication Reconciliation I have utilized all available resources to obtain, update and review the patients current medications (includes all prescriptions, OTC, herbals, cannabis, and nutritional supplements).: Yes
[2024-10-05] MEDS: ONDANSETRON INJ 4 MG/2 ML VIAL IV PUSH (08:15)
[2024-10-05] MEDS: PANTOPRAZOLE SODIUM IV 40 MG VIAL IV PUSH ×2 (08:16→20:33)
--- NOTE | 2024-10-05 09:33 | P.CONGI_ITS ---
Assessment and Plan Assessment and plan (1) Abdominal pain: Qualifiers: Abdominal location: epigastric Qualified Code(s): R10.13 - Epigastric pain Code(s): R10.9 - Unspecified abdominal pain Status: Acute Assessment and Plan: The patient had an apparent episode of GI bleeding but with no hemodynamic compromise or drop in hemoglobin. His rectal exam today shows scant amount of hard dark stools, therefore there is no active bleeding. Regardless, I will obtain iron studies and perform an EGD and colonoscopy Tuesday afternoon. Differential diagnosis includes right-sided diverticular bleed versus peptic ulcer, less likely occult bleeding originated in the small bowel. (2) GI bleed: Qualifiers: GI bleed type/associated pathology: unspecified gastrointestinal hemorrhage type Qualified Code(s): K92.2 - Gastrointestinal hemorrhage, unspecified Code(s): K92.2 - Gastrointestinal hemorrhage, unspecified Status: Acute GI Consult Note Consult date/time: 10/05/24 09:33 Reason for consult: gi bleeding HPI: Catrachito Arzate is a 84 year old male with a history of chronic back pain who was not taking NSAIDs and was in his usual state of health until 3 days ago when he started having nausea, epigastric discomfort and loose stools with blood. He denies presyncopal episodes, weakness or dizziness, but went to the emergency room yesterday where he was noticed to have maroon stools on rectal examination and was admitted for evaluation. Since hospitalization, the patient has not had further bleeding episodes but is still complaining of nausea and food intolerance. Review of Systems Review of Systems: All systems reviewed & are unremarkable except as noted in HPI and below PMFSH Past Medical History Medical History Enlarged prostate Surgical History Surgical History History of kyphoplasty (~09/2024) @[facility] Social History Social History Smoking packs per day: 1 Smoking cigarettes per day: 20.0 Years smoked: 60 Smoking pack-years: 60.00 Smoking status: Current every day smoker Alcohol intake: never Substance use: never Do You Feel Safe in your Home?: Yes Lack of Transportation: No Lack of Food: Never True Current Housing: I Have Housing Concerned About Future Housing: No Difficulty Paying Gas/Electric Bills: No Difficulty Paying for Meds: No Currently Unemployed: No Education: Don't Know Difficulty w/ Childcare or Family Care: No Spiritual care concerns: No Meds Home Medications and Allergies Home Medications Medication Instructions Recorded Confirmed Type tamsulosin 0.4 mg capsule (Flomax) 0.4 mg PO HS #30 caps 08/03/21 10/04/24 Rx finasteride 5 mg tablet 5 mg PO DAILY 12/25/21 10/04/24 History alendronate 70 mg tablet 70 mg PO WEEKLY 10/04/24 10/04/24 History ergocalciferol (vitamin D2) 1,250 1,250 mcg PO WEEKLY 10/04/24 10/04/24 History mcg (50,000 unit) capsule (Vitamin D2) Allergies Allergy/AdvReac Type Severity Reaction Status Date / Time No Known Allergies Allergy Verified 10/04/24 12:01 Vital Signs Vital Signs - 24 hr 10/04/24 12:05 10/04/24 14:02 10/04/24 15:43 Temperature 98.3 F Pulse Rate 100 82 85 Respiratory Rate 16 20 23 H Blood Pressure 113/67 120/69 131/76 Pulse Oximetry 96 100 100 Oxygen Delivery 10/04/24 14:15 10/04/24 14:31 10/04/24 15:01 Temperature Pulse Rate 87 90 83 Respiratory Rate 19 21 H 20 Blood Pressure 124/84 124/75 Pulse Oximetry 100 Oxygen Delivery 10/04/24 15:15 10/04/24 15:31 10/04/24 15:46 Temperature Pulse Rate 81 86 84 Respiratory Rate 20 22 H 16 Blood Pressure 121/77 131/76 139/80 Pulse Oximetry 100 96 100 Oxygen Delivery 10/04/24 16:52 10/04/24 21:37 10/04/24 20:00 Temperature 98.3 F Pulse Rate 77 Respiratory Rate 18 Blood Pressure 122/67 Pulse Oximetry 100 Oxygen Delivery Room Air Room Air 10/05/24 05:39 Temperature 97.7 F Pulse Rate 77 Respiratory Rate 18 Blood Pressure 100/56 L Pulse Oximetry 99 Oxygen Delivery Exam Const: General: comfortable and no acute distress Other: , male, cachectic appearance, frail, elderly HENMT: Face/Nose/Sinus: Normal nares present Mouth: Yes dry mucous membranes Eyes: General: appearance normal, both eyes and all related structures Sclera: sclerae normal Pupils: Equal, round and reactive pupils present EOM: EOMs intact bilaterally Resp: Effort & Inspection: normal respiratory effort Auscultation: clear to auscultation bilaterally Cardio: Rate: regular rate Rhythm: regular rhythm Other: S1-S2 present without murmur, rub, ectopy GI: Other: Abdomen soft, nondistended, nontender. Normoactive bowel sounds in all quadrants. Rectal exam: small amounts of solid, formed black stools. No masses. Skin: General skin exam: normal color and no rashes or lesions noted Wounds: no wounds Neuro: Cranial nerves: Yes Equal, round and reactive pupils present Speech: normal speech Motor exam (neuro): 5/5 motor strength present throughout Sensory Exam: normal sensation Other: A&O x4 Extrem: General: normal to inspection Psych: Mental Status: mental status grossly normal Affect: normal affect Other: Fair insight and judgment Results Labs 10/05/24 05:13 10/05/24 05:13 Labs: Short CBC 10/04/24 10/04/24 10/05/24 Range/Units 12:28 20:04 05:13 WBC 8.0 4.4 L (4.5-10.0) K/mm3 Hgb 13.9 L 12.8 L 11.8 L (14.0-18.0) g/dL Hct 39.4 L 36.4 L 34.3 L (42.0-52.0) % Plt Count 398 H D 271 (150-375) k/mm3 BMP 10/04/24 10/05/24 12:28 05:13 Sodium 130 L 130 L Potassium 4.1 4.0 Chloride 95 L 101 Carbon Dioxide 26 25 BUN 13 D 9 Creatinine 0.50 L 0.60 L Glucose 117 H 97 Calcium 9.0 8.0 L Liver Function 10/04/24 10/05/24 Range/Units 12:28 05:13 Total Bilirubin 0.7 0.5 (0.2-1.3) mg/dL AST 45 35 (17-59) U/L ALT 23 21 (6-50) U/L Alkaline Phosphatase 122 98 (38-126) U/L Albumin 4.0 3.1 L (3.5-5.1) g/dL Urine 10/04/24 Range/Units 12:56 Urine Color Yellow (Yellow) Urine Appearance Cloudy H (Clear) Urine pH 7.0 (5.0-9.0) Ur Specific [place] 1.030 (1.001-1.035) Urine Protein 1+ H (Negative) mg/dL Urine Glucose (UA) Negative (Negative) mg/dL
[2024-10-05 10:03] LABS: Iron 46 ug/dL (49-181)
[2024-10-05 10:12] LABS: Percent Iron Saturation 15 % (20-50)
[2024-10-05 10:37] VITALS: O2SAT 99
[2024-10-05] MEDS: METOCLOPRAMIDE HCL INJ 10 MG/2 ML VIAL IV PUSH ×2 (11:25→16:06)
[2024-10-05 14:00] VITALS: BP 128/66; PULSE 75; RESP 22; TEMP 36.6; O2SAT 99
[2024-10-05] MEDS: HYDROcodone/acetaminophen (*CRX) 5-325 MG TABLET 1 TAB PO (17:36)
[2024-10-05 20:26] VITALS: BP 114/75; PULSE 73; RESP 16; TEMP 36.8; O2SAT 98
[2024-10-05] MEDS: TAMSULOSIN HCL 0.4 MG CAPSULE PO (20:33)
[2024-10-05 22:00] VITALS: BP 110/61; PULSE 70; RESP 16; TEMP 36.7; O2SAT 99
[2024-10-05] MEDS: MELATONIN 5 MG TABLET PO (22:12)
[2024-10-06] MEDS: HYDROcodone/acetaminophen (*CRX) 5-325 MG TABLET 1 TAB PO ×2 (03:37→17:33)
[2024-10-06] MEDS: SODIUM CHLORIDE 0.9% IV 1,000 ML 125 ML IV CONT ×3 (03:38→20:39)
[2024-10-06 04:34] VITALS: BP 104/54; PULSE 72; RESP 18; TEMP 36.7; O2SAT 99
[2024-10-06] MEDS: METOCLOPRAMIDE HCL INJ 10 MG/2 ML VIAL IV PUSH ×3 (06:21→17:23)
--- NOTE | 2024-10-06 08:27 | PM.IMPN ---
Progress Note: A&P Assessment and Plan (1) GI bleed: Qualifiers: GI bleed type/associated pathology: unspecified gastrointestinal hemorrhage type Qualified Code(s): K92.2 - Gastrointestinal hemorrhage, unspecified Code(s): K92.2 - Gastrointestinal hemorrhage, unspecified Status: Acute Assessment and Plan: - no findings on CT abd/pelvis as etiology for GI bleed - ETOH use: none - Hgb 13.9, trend - started on Pantoprazole 40 mg BID - GI consulted EGD and colonoscopy Tuesday - clear liquid diet today and tomorrow (2) Abdominal pain: Qualifiers: Abdominal location: epigastric Qualified Code(s): R10.13 - Epigastric pain Code(s): R10.9 - Unspecified abdominal pain Status: Acute Assessment and Plan: - CT abdomen/pelvis: 1. No acute intra-abdominal/pelvic process. 2. 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 3. Prostatomegaly. 4. Multiple chronic compression and burst fractures in the lumbar and lower thoracic spine. - associated nausea and vomiting, antiemetics p.r.n. - given maroon bowel movements and positive Hemoccult, suspect GI bleed as etiology for nausea/vomiting & epigastric pain. see above. - GI consulted (3) Depression: Qualifiers: Depression Type: unspecified Qualified Code(s): F32.A - Depression, unspecified Code(s): F32.A - Depression, unspecified Status: Acute Assessment and Plan: - daughter feels patient has been more depressed, referred to PCP for initiation of depression medications Plan Diet: Clear liquids, NPO midnight GI Prophylaxis: Pantoprazole b.i.d. DVT Prophylaxis: SCDs Lines: Peripheral Code Status: Full code Time Spent With Patient Time: 59 minutes Subjective Date/time seen: 10/06/24 08:27 Interval history: Reports low back pain that he had post kyphoplasty, but otherwise no melena. Reports multiple black stools yesterday but none today. No nausea or vomiting. Blood count trending down slowly 84 y/o M presents here with nausea and vomiting with PMH of enlarged prostate and recent kyphoplasty presents with nausea and vomiting found to GI bleed. Review of Systems Review of Systems: All systems reviewed & are unremarkable except as noted in HPI and below Exam Narrative: General - Awake and alert. No acute distress Eyes - PERRLA, EOM intact ENT - No thrush, No erythema Neck - No noticeable or palpable swelling Lymph Nodes - No lymphadenopathy Cardiovascular - RRR no m/r/g, no JVD Lungs: Clear to auscultation, No wheezing, use of accessory muscles, no crackles Skin - Skin warm and dry, no wounds or rashes Abdomen - Normal bowel sounds, abdomen soft and nontender Extremities - No edema, cyanosis or clubbing Musculoskeletal - 5/5 strength, normal range of motion, no swollen or erythematous joints. Low back minimal tenderness to palpation Neurological ? Alert and oriented x 3, CN 2-12 grossly intact. Psych: Normal mood and affect Objective Data Vital Signs Vital Signs: Vital Signs - 24 hr 10/05/24 10:37 10/05/24 14:00 10/05/24 20:26 Temperature 98 F 98.3 F Pulse Rate 75 73 Respiratory Rate 22 H 16 Blood Pressure 128/66 114/75 Pulse Oximetry 99 99 98 Oxygen Delivery Room Air Fraction of Inspired Oxygen 10/05/24 22:00 10/06/24 04:34 Temperature 98.0 F 98.0 F Pulse Rate 70 72 Respiratory Rate 16 18 Blood Pressure 110/61 104/54 L Pulse Oximetry 99 99 Oxygen Delivery Fraction of Inspired Oxygen Intake/Output Intake/Output: Intake & Output 10/03/24 10/04/24 10/05/24 10/06/24 23:59 23:59 23:59 23:59 Intake Total 1400 2893.3 964.6 Balance 1400 2893.3 964.6 Meds/Results Medications: Active Medications Generic Name Dose Route Start Last Admin Trade Name Freq PRN Reason Stop Dose Admin Acetaminophen 650 mg 10/04/24 15:41 10/05/24 11:28 Acetaminophen 325 Mg Tablet PO 650 mg Q6H PRN Administration Mild Pain (1-3) or Fever Hydrocodone Bitart/Acetaminophen 1 tab 10/04/24 15:41 10/06/24 03:37 Hydrocodone/Acetaminophen (*Crx) 5-325 Mg Tablet PO 1 tab Q6H PRN Administration Pain Rated 4-6 Alendronate Sodium 70 mg 10/09/24 06:30 Alendronate Sodium 70 Mg Tablet PO Tu@0630 [facility] Ergocalciferol 50,000 units 10/08/24 09:00 Ergocalciferol 50,000 Units Capsule PO Mo@0900 ELSY Finasteride 5 mg 10/05/24 09:00 10/05/24 09:00 Finasteride 5 Mg Tablet PO Not Given DAILY ELSY Sodium Chloride 1,000 mls @ 125 mls/hr 10/04/24 15:05 10/06/24 03:38 Normal Saline Iv IV CONT 125 mls/hr .Q8H ELSY Administration Melatonin 5 mg 10/05/24 20:14 10/05/24 22:12 Melatonin 5 Mg Tablet PO 5 mg HS PRN Administration Sleep Metoclopramide HCl 10 mg 10/05/24 11:30 10/06/24 06:21 Metoclopramide Hcl Inj 10 Mg/2 Ml Vial IV PUSH 10 mg AC ELSY Administration Morphine Sulfate 2 mg 10/04/24 15:06 Morphine Sulfate (*Crx) 2 Mg/Ml Inj IV PUSH Q4H PRN Abdominal Cramping Pantoprazole Sodium 40 mg 10/04/24 21:00 10/05/24 20:33 Pantoprazole Sodium Iv 40 Mg Vial IV PUSH 40 mg Q12HR ELSY Administration Polyethylene Glycol 119 gm 10/08/24 07:00 Polyethylene Glycol 3350 238 Gm Bottle PO 10/08/24 07:01 ONCE ONE Polyethylene Glycol 119 gm 10/08/24 02:00 Polyethylene Glycol 3350 238 Gm Bottle PO 10/08/24 02:01 ONCE ONE Tamsulosin HCl 0.4 mg 10/04/24 21:15 10/05/24 20:33 Tamsulosin Hcl 0.4 Mg Capsule PO 0.4 mg HS ELSY Administration Radiology Results: ITS Impressions Abdomen/Pelvis CT 10/04/24 13:36 IMPRESSION: 1. No acute intra-abdominal/pelvic process. 2. 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 3. Prostatomegaly. 4. Multiple chronic compression and burst fractures in the lumbar and lower thoracic spine. Labs Labs: Laboratory Results - last 24 hr 10/05/24 05:09 Iron 46 L TIBC 307 % Saturation 15 L Quality VTE Prophylaxis VTE prophylaxis: mechanical ordered Hospitalist MIPS Advance Care Plan I have confirmed that the patient's Advanced Care Plan is present, code status is documented, or surrogate decision maker is listed in patient medical record.: Yes Medication Reconciliation I have utilized all available resources to obtain, update and review the patients current medications (includes all prescriptions, OTC, herbals, cannabis, and nutritional supplements).: Yes
[2024-10-06 08:44] LABS: Basophils Percent Auto 1.1 % (0.2-1.2); Eosinophils Absolute Auto 0.3 K/mm3 (0-0.3); Eosinophils Percent Auto 7.9 % (0-4.4); Hematocrit 33.3 % (42.0-52.0); Hemoglobin 11.1 g/dL (14.0-18.0); Immature Granulocyte Absolute 0.01 K/mm3 (0.00-0.031); Immature Granulocyte Percent A 0.3 % (0-0.5); Lymphocytes Absolute Auto 0.98 K/mm3 (0.9-3.2); Lymphocytes Percent Auto 26.8 % (18.3-44.2); Mean Corpuscular HGB Conc 33.3 g/dl (32-36); Mean Corpuscular Hemoglobin 30.7 pg (26-34); Monocytes Absolute Auto 0.6 K/mm3 (0.1-0.6); Monocytes Percent Auto 15.9 % (2.6-8.5); Neutrophils Absolute Auto 1.8 K/mm3 (1.3-6.7); Platelet Count Result 226 k/mm3 (150-375); Red Blood Count 3.62 M/mm3 (4.6-6.20); White Blood Count 3.7 K/mm3 (4.5-10.0)
[2024-10-06 08:58] LABS: Alanine Aminotransferase 19 U/L (6-50); Albumin Level 2.9 g/dL (3.5-5.1); Alkaline Phosphatase 88 U/L (38-126); Anion Gap 4 mmol/L (4-12); Aspartate Amino Transferase 35 U/L (17-59); Bilirubin,Total 0.5 mg/dL (0.2-1.3); Blood Urea Nitrogen 6 mg/dL (9-20); Carbon Dioxide 22 mmol/L (22-30); Chloride 106 mmol/L (98-107); Estimated CRCL calculation 64 ml/min; Estimated Glomerular Filt Rate > 60; Glucose 92 mg/dL (65-110); Sodium 132 mmol/L (137-145)
[2024-10-06] MEDS: FINASTERIDE 5 MG TABLET PO (09:07)
[2024-10-06] MEDS: PANTOPRAZOLE SODIUM IV 40 MG VIAL IV PUSH ×2 (09:08→20:40)
--- NOTE | 2024-10-06 11:54 | WPDGIPROGNO ---
Progress Note: A&P Assessment and Plan (1) Abdominal pain: Qualifiers: Abdominal location: epigastric Qualified Code(s): R10.13 - Epigastric pain Code(s): R10.9 - Unspecified abdominal pain Status: Acute (2) GI bleed: Qualifiers: GI bleed type/associated pathology: unspecified gastrointestinal hemorrhage type Qualified Code(s): K92.2 - Gastrointestinal hemorrhage, unspecified Code(s): K92.2 - Gastrointestinal hemorrhage, unspecified Status: Acute Plan OVERALL PATIENT IS STABLE WILL KEEP THE PATIENT ON CLEAR LIQUID DIET. PLAN IS TO DO UPPER ENDOSCOPY AND COLONOSCOPY ON TUESDAY POSSIBILITY OF CONSTIPATION HEMORRHOIDS WELL THE COLON MALIGNANCY HAS BEEN DISCUSSED WITH THE FAMILY. FURTHER RECOMMENDATIONS WILL FOLLOW AFTER THE UPPER ENDOSCOPY AND COLONOSCOPY PATIENT SEEN COVERING ON THE REGULAR GI TEAM WILL RESUME PATIENT CARE ON TUESDAY Subjective Date/time seen: 10/06/24 11:54 Interval history: PATIENT SEEN COVERING ON THE PATIENT GOT SONS AT THE BEDSIDE PATIENT HAS RECTAL BLEEDING WHICH HAS RESOLVED HEMOGLOBIN TODAY IS 11.1 CT SCAN DID NOT SHOW ANY ACUTE FINDINGS PATIENT IS SCHEDULED FOR AN UPPER ENDOSCOPY AND COLONOSCOPY ON TUESDAY PATIENT DENIES ANY NAUSEA VOMITING ABDOMINAL PAIN MOST OF THE HISTORY IS TAKEN FROM PATIENT'S FAMILY WHO DISCUSSED WITH THE PATIENT AND TRANSLATED FOR HIM Review of Systems Review of Systems: REVIEW OF SYSTEMS OTHERWISE NEGATIVE Exam Narrative: NO ACUTE DISTRESS HENMT: Other: PUPILS EQUALLY REACTIVE Neck: Other: SUPPLE Resp: Other: CLEAR TO AUSCULTATION Cardio: Other: S1-S2 REGULAR RATE RHYTHM GI: Other: NO ABDOMINAL TENDERNESS REBOUND RIGIDITY. BOWEL SOUNDS POSITIVE Neuro: Other: INTACT Objective Data Vital Signs Vital Signs: Vital Signs - 24 hr 10/05/24 14:00 10/05/24 20:26 10/05/24 22:00 Temperature 98 F 98.3 F 98.0 F Pulse Rate 75 73 70 Respiratory Rate 22 H 16 16 Blood Pressure 128/66 114/75 110/61 Pulse Oximetry 99 98 99 10/06/24 04:34 Temperature 98.0 F Pulse Rate 72 Respiratory Rate 18 Blood Pressure 104/54 L Pulse Oximetry 99 Intake/Output Intake/Output: Intake & Output 10/03/24 10/04/24 10/05/24 10/06/24 23:59 23:59 23:59 23:59 Intake Total 1400 2893.3 2204.6 Balance 1400 2893.3 2204.6 Meds/Results Medications: Active Medications Generic Name Dose Route Start Last Admin Trade Name Freq PRN Reason Stop Dose Admin Acetaminophen 650 mg 10/04/24 15:41 10/05/24 11:28 Acetaminophen 325 Mg Tablet PO 650 mg Q6H PRN Administration Mild Pain (1-3) or Fever Hydrocodone Bitart/Acetaminophen 1 tab 10/04/24 15:41 10/06/24 03:37 Hydrocodone/Acetaminophen (*Crx) 5-325 Mg Tablet PO 1 tab Q6H PRN Administration Pain Rated 4-6 Alendronate Sodium 70 mg 10/09/24 06:30 Alendronate Sodium 70 Mg Tablet PO Tu@0630 ELSY Ergocalciferol 50,000 units 10/08/24 09:00 Ergocalciferol 50,000 Units Capsule PO Mo@0900 ELSY Finasteride 5 mg 10/05/24 09:00 10/06/24 09:07 Finasteride 5 Mg Tablet PO 5 mg DAILY ELSY Administration Sodium Chloride 1,000 mls @ 125 mls/hr 10/04/24 15:05 10/06/24 11:51 Normal Saline Iv IV CONT 125 mls/hr .Q8H ELSY Administration Melatonin 5 mg 10/05/24 20:14 10/05/24 22:12 Melatonin 5 Mg Tablet PO 5 mg HS PRN Administration Sleep Metoclopramide HCl 10 mg 10/05/24 11:30 10/06/24 06:21 Metoclopramide Hcl Inj 10 Mg/2 Ml Vial IV PUSH 10 mg AC ELSY Administration Morphine Sulfate 2 mg 10/04/24 15:06 Morphine Sulfate (*Crx) 2 Mg/Ml Inj IV PUSH Q4H PRN Abdominal Cramping Pantoprazole Sodium 40 mg 10/04/24 21:00 10/06/24 09:08 Pantoprazole Sodium Iv 40 Mg Vial IV PUSH 40 mg Q12HR ELSY Administration Polyethylene Glycol 119 gm 10/08/24 07:00 Polyethylene Glycol 3350 238 Gm Bottle PO 10/08/24 07:01 ONCE ONE Polyethylene Glycol 119 gm 10/08/24 02:00 Polyethylene Glycol 3350 238 Gm Bottle PO 10/08/24 02:01 ONCE ONE Tamsulosin HCl 0.4 mg 10/04/24 21:15 10/05/24 20:33 Tamsulosin Hcl 0.4 Mg Capsule PO 0.4 mg HS ELSY Administration Radiology Results: ITS Impressions Abdomen/Pelvis CT 10/04/24 13:36 IMPRESSION: 1. No acute intra-abdominal/pelvic process. 2. 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 3. Prostatomegaly. 4. Multiple chronic compression and burst fractures in the lumbar and lower thoracic spine. Labs Labs: Laboratory Results - last 24 hr 10/06/24 08:33 WBC 3.7 L RBC 3.62 L Hgb 11.1 L Hct 33.3 L MCV 92.0 MCH 30.7 MCHC 33.3 RDW 14.0 Plt Count 226 MPV 9.0 Immature Gran % (Auto) 0.3 Neut % (Auto) 48.0 Lymph % (Auto) 26.8 [place] % (Auto) 15.9 H Eos % (Auto) 7.9 H Baso % (Auto) 1.1 Lymph # (Auto) 0.98 [place] # (Auto) 0.6 Eos # (Auto) 0.3 Baso # (Auto) 0.0 Abs Immat Gran (auto) 0.01 Absolute Neuts (auto) 1.8 Absolute Nucleated RBC 0.000 Nucleated RBC % 0.0 Sodium 132 L Potassium 4.0 Chloride 106 Carbon Dioxide 22 Anion Gap 4 BUN 6 L Creatinine 0.60 L Estim Creat Clear Calc 64 Estimated GFR > 60 Glucose 92 Calcium 8.0 L Total Bilirubin 0.5 AST 35 ALT 19 Alkaline Phosphatase 88 Total Protein 6.0 L Albumin 2.9 L
[2024-10-06 14:00] VITALS: BP 125/65; PULSE 67; RESP 18; TEMP 37.1; O2SAT 99
[2024-10-06 20:27] VITALS: BP 130/65; PULSE 70; RESP 14; TEMP 36.5; O2SAT 98
[2024-10-06] MEDS: TAMSULOSIN HCL 0.4 MG CAPSULE PO (20:41)
[2024-10-07] MEDS: HYDROcodone/acetaminophen (*CRX) 5-325 MG TABLET 1 TAB PO ×2 (03:59→13:38)
[2024-10-07] MEDS: SODIUM CHLORIDE 0.9% IV 1,000 ML 125 ML IV CONT ×3 (04:01→20:23)
[2024-10-07 04:07] VITALS: BP 133/75; PULSE 75; RESP 16; TEMP 36.4; O2SAT 97
[2024-10-07 05:11] LABS: Basophils Absolute Auto 0.1 K/mm3 (0.0-0.1); Basophils Percent Auto 0.9 % (0.2-1.2); Eosinophils Absolute Auto 0.4 K/mm3 (0-0.3); Eosinophils Percent Auto 6.4 % (0-4.4); Hematocrit 34.7 % (42.0-52.0); Hemoglobin 11.5 g/dL (14.0-18.0); Immature Granulocyte Absolute 0.02 K/mm3 (0.00-0.031); Immature Granulocyte Percent A 0.4 % (0-0.5); Lymphocytes Absolute Auto 0.93 K/mm3 (0.9-3.2); Lymphocytes Percent Auto 16.6 % (18.3-44.2); Mean Corpuscular HGB Conc 33.1 g/dl (32-36); Mean Corpuscular Hemoglobin 30.5 pg (26-34); Mean Platelet Volume 8.5 fl (7.4-10.4); Monocytes Absolute Auto 0.6 K/mm3 (0.1-0.6); Monocytes Percent Auto 10.9 % (2.6-8.5); Neutrophils Absolute Auto 3.6 K/mm3 (1.3-6.7); Neutrophils Percent Auto 64.8 % (45.5-73.1); Platelet Count Result 254 k/mm3 (150-375); Red Blood Count 3.77 M/mm3 (4.6-6.20); Red Cell Distribution Width 13.8 % (11.5-14.5); White Blood Count 5.6 K/mm3 (4.5-10.0)
[2024-10-07 05:26] LABS: Anion Gap 3 mmol/L (4-12); Blood Urea Nitrogen 4 mg/dL (9-20); Calcium 8.3 mg/dL (8.4-10.2); Carbon Dioxide 28 mmol/L (22-30); Chloride 104 mmol/L (98-107); Estimated CRCL calculation 56 ml/min; Estimated Glomerular Filt Rate > 60; Glucose 110 mg/dL (65-110); Sodium 135 mmol/L (137-145)
[2024-10-07 05:27] LABS: INR 1.2
[2024-10-07] MEDS: METOCLOPRAMIDE HCL INJ 10 MG/2 ML VIAL IV PUSH ×3 (06:09→18:58)
--- NOTE | 2024-10-07 07:12 | P.PNIM_ITS ---
Progress Note: A&P Assessment and Plan (1) GI bleed: Qualifiers: GI bleed type/associated pathology: unspecified gastrointestinal hemorrhage type Qualified Code(s): K92.2 - Gastrointestinal hemorrhage, unspecified Code(s): K92.2 - Gastrointestinal hemorrhage, unspecified Status: Acute Assessment and Plan: - no findings on CT abd/pelvis as etiology for GI bleed - ETOH use: none - Hgb 13.9, trend - started on Pantoprazole 40 mg BID - GI consulted EGD and colonoscopy Tuesday afternoon - clear liquid diet Now NPO at midnight (2) Abdominal pain: Qualifiers: Abdominal location: epigastric Qualified Code(s): R10.13 - Epigastric pain Code(s): R10.9 - Unspecified abdominal pain Status: Acute Assessment and Plan: - CT abdomen/pelvis: 1. No acute intra-abdominal/pelvic process. 2. 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 3. Prostatomegaly. 4. Multiple chronic compression and burst fractures in the lumbar and lower thoracic spine. - associated nausea and vomiting, antiemetics p.r.n. - given maroon bowel movements and positive Hemoccult, suspect GI bleed as etiology for nausea/vomiting & epigastric pain. see above. - GI consulted (3) Depression: Qualifiers: Depression Type: unspecified Qualified Code(s): F32.A - Depression, unspecified Code(s): F32.A - Depression, unspecified Status: Acute Assessment and Plan: - daughter feels patient has been more depressed, referred to PCP for initiation of depression medications Plan Diet: Clear liquids, NPO midnight GI Prophylaxis: Pantoprazole b.i.d. DVT Prophylaxis: SCDs Lines: Peripheral Code Status: Full code Time Spent With Patient Time with patient: Greater than 35 minutes Subjective Date/time seen: 10/07/24 07:12 Interval history: 84 y/o M presents here with nausea and vomiting with PMH of enlarged prostate and recent kyphoplasty presents with nausea and vomiting found to GI bleed. plan for scope and EGD on Tuesday, for clear liquid diet, NPO at midnight. hemoglobin stable on labs Review of Systems Review of Systems: All systems reviewed & are unremarkable except as noted in HPI and below Exam Narrative: General - Awake and alert. No acute distress Eyes - PERRLA, EOM intact ENT - No thrush, No erythema Neck - No noticeable or palpable swelling Lymph Nodes - No lymphadenopathy Cardiovascular - RRR no m/r/g, no JVD Lungs: Clear to auscultation, No wheezing, use of accessory muscles, no crackles Skin - Skin warm and dry, no wounds or rashes Abdomen - Normal bowel sounds, abdomen soft and nontender Extremities - No edema, cyanosis or clubbing Musculoskeletal - 5/5 strength, normal range of motion, no swollen or erythematous joints. Low back minimal tenderness to palpation Neurological ? Alert and oriented x 3, CN 2-12 grossly intact. Psych: Normal mood and affect Const: General: comfortable and no acute distress Other: , male, cachectic appearance, frail, elderly HENMT: Face/Nose/Sinus: Normal nares present Mouth: Yes moist mucous membranes and Yes dry mucous membranes Eyes: General: appearance normal, both eyes and all related structures Sclera: sclerae normal Pupils: Equal, round and reactive pupils present EOM: EOMs intact bilaterally Resp: Effort & Inspection: normal respiratory effort Auscultation: clear to auscultation bilaterally Cardio: Rate: regular rate Rhythm: regular rhythm Other: S1-S2 present without murmur, rub, ectopy GI: Other: Abdomen soft, nondistended, nontender. Normoactive bowel sounds in all quadrants. Skin: General skin exam: normal color and no rashes or lesions noted Wounds: no wounds Neuro: Cranial nerves: Yes Equal, round and reactive pupils present Speech: normal speech Motor exam (neuro): 5/5 motor strength present throughout Sensory Exam: normal sensation Other: A&O x4 Extrem: General: normal to inspection Psych: Mental Status: mental status grossly normal Affect: normal affect Other: Fair insight and judgment Objective Data Vital Signs Vital Signs: Vital Signs - 24 hr 10/06/24 09:10 10/06/24 14:00 10/06/24 20:27 Temperature 98.7 F 97.7 F Pulse Rate 67 70 Respiratory Rate 18 14 Blood Pressure 125/65 130/65 Pulse Oximetry 99 98 Oxygen Delivery Room Air 10/07/24 04:07 Temperature 97.6 F Pulse Rate 75 Respiratory Rate 16 Blood Pressure 133/75 Pulse Oximetry 97 Oxygen Delivery Intake/Output Intake/Output: Intake & Output 10/04/24 10/05/24 10/06/2424 23:59 23:59 23:59 23:59 Intake Total 1400 2893.3 3906.6 1200 Balance 1400 2893.3 3906.6 1200 Meds/Results Medications: Active Medications Generic Name Dose Route Start Last Admin Trade Name Freq PRN Reason Stop Dose Admin Acetaminophen 650 mg 10/04/24 15:41 10/05/24 11:28 Acetaminophen 325 Mg Tablet PO 650 mg Q6H PRN Administration Mild Pain (1-3) or Fever Hydrocodone Bitart/Acetaminophen 1 tab 10/04/24 15:41 10/07/24 03:59 Hydrocodone/Acetaminophen (*Crx) 5-325 Mg Tablet PO 1 tab Q6H PRN Administration Pain Rated 4-6 Alendronate Sodium 70 mg 10/09/24 06:30 Alendronate Sodium 70 Mg Tablet PO Tu@0630 ELSY Ergocalciferol 50,000 units 10/08/24 09:00 Ergocalciferol 50,000 Units Capsule PO Mo@0900 ELSY Finasteride 5 mg 10/05/24 09:00 10/06/24 09:07 Finasteride 5 Mg Tablet PO 5 mg DAILY ELSY Administration Sodium Chloride 1,000 mls @ 125 mls/hr 10/04/24 15:05 10/07/24 04:01 Normal Saline Iv IV CONT 125 mls/hr .Q8H ELSY Administration Melatonin 5 mg 10/05/24 20:14 10/05/24 22:12 Melatonin 5 Mg Tablet PO 5 mg HS PRN Administration Sleep Metoclopramide HCl 10 mg 10/05/24 11:30 10/07/24 06:09 Metoclopramide Hcl Inj 10 Mg/2 Ml Vial IV PUSH 10 mg AC ELSY Administration Morphine Sulfate 2 mg 10/04/24 15:06 Morphine Sulfate (*Crx) 2 Mg/Ml Inj IV PUSH Q4H PRN Abdominal Cramping Pantoprazole Sodium 40 mg 10/04/24 21:00 10/06/24 20:40 Pantoprazole Sodium Iv 40 Mg Vial IV PUSH 40 mg Q12HR ELSY Administration Polyethylene Glycol 119 gm 10/08/24 07:00 Polyethylene Glycol 3350 238 Gm Bottle PO 10/08/24 07:01 ONCE ONE Polyethylene Glycol 119 gm 10/08/24 02:00 Polyethylene Glycol 3350 238 Gm Bottle PO 10/08/24 02:01 ONCE ONE Tamsulosin HCl 0.4 mg 10/04/24 21:15 10/06/24 20:41 Tamsulosin Hcl 0.4 Mg Capsule PO 0.4 mg HS ELSY Administration Radiology Results: ITS Impressions Abdomen/Pelvis CT 10/04/24 13:36 IMPRESSION: 1. No acute intra-abdominal/pelvic process. 2. 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 3. Prostatomegaly. 4. Multiple chronic compression and burst fractures in the lumbar and lower thoracic spine. Labs Labs: Laboratory Results - last 24 hr 10/06/24 10/07/24 08:33 04:43 WBC 3.7 L 5.6 RBC 3.62 L 3.77 L Hgb 11.1 L 11.5 L Hct 33.3 L 34.7 L MCV 92.0 92.0 MCH 30.7 30.5 MCHC 33.3 33.1 RDW 14.0 13.8 Plt Count 226 254 MPV 9.0 8.5 Immature Gran % (Auto) 0.3 0.4 Neut % (Auto) 48.0 64.8 Lymph % (Auto) 26.8 16.6 L [place] % (Auto) 15.9 H 10.9 H Eos % (Auto) 7.9 H 6.4 H Baso % (Auto) 1.1 0.9 Lymph # (Auto) 0.98 0.93 [place] # (Auto) 0.6 0.6 Eos # (Auto) 0.3 0.4 H Baso # (Auto) 0.0 0.1 Abs Immat Gran (auto) 0.01 0.02 Absolute Neuts (auto) 1.8 3.6 Absolute Nucleated RBC 0.000 0.000 Nucleated RBC % 0.0 0.0 PT 15.0 H INR 1.2 Sodium 132 L 135 L Potassium 4.0 4.0 Chloride 106 104 Carbon Dioxide 22 28 Anion Gap 4 3 L BUN 6 L 4 L Creatinine 0.60 L 0.70 Estim Creat Clear Calc 64 56 Estimated GFR > 60 > 60 Glucose 92 110 Calcium 8.0 L 8.3 L Total Bilirubin 0.5 AST 35 ALT 19 Alkaline Phosphatase 88 Total Protein 6.0 L Albumin 2.9 L Quality VTE Prophylaxis VTE prophylaxis: mechanical ordered If No VTE Prophylaxis Answer both mechanical and pharmacologic: Reason no pharmacologic proph: medical contraindication active bleeding/bleeding risk
[2024-10-07] MEDS: PANTOPRAZOLE SODIUM IV 40 MG VIAL IV PUSH ×2 (08:48→20:18)
[2024-10-07] MEDS: FINASTERIDE 5 MG TABLET PO (08:48)
--- NOTE | 2024-10-07 11:54 | WPDGIPROGNO ---
Progress Note: A&P Assessment and Plan (1) GI bleed: Qualifiers: GI bleed type/associated pathology: unspecified gastrointestinal hemorrhage type Qualified Code(s): K92.2 - Gastrointestinal hemorrhage, unspecified Code(s): K92.2 - Gastrointestinal hemorrhage, unspecified Status: Acute (2) Abdominal pain: Qualifiers: Abdominal location: epigastric Qualified Code(s): R10.13 - Epigastric pain Code(s): R10.9 - Unspecified abdominal pain Status: Acute Plan overall patient is doing well at this point patient is scheduled for upper endoscopy and colonoscopy tomorrow for abdominal pain or rectal bleeding H&H has been stable regular GI team will assume patient care tomorrow Subjective Date/time seen: 10/07/24 11:54 Interval history: the patient's daughter is at bedside patient denies any nausea vomiting abdominal pain the daughter acts as a reconciliation machine operator Review of Systems Review of Systems: negative Exam Neck: Other: supple Resp: Other: air entry equal clear Cardio: Other: S1-S2 regular rate rhythm GI: Other: soft nontender bowel sounds positive Neuro: Other: intact Objective Data Vital Signs Vital Signs: Vital Signs - 24 hr 10/06/24 14:00 10/06/24 20:27 10/07/24 04:07 Temperature 98.7 F 97.7 F 97.6 F Pulse Rate 67 70 75 Respiratory Rate 18 14 16 Blood Pressure 125/65 130/65 133/75 Pulse Oximetry 99 98 97 Oxygen Delivery 10/07/24 08:50 Temperature Pulse Rate Respiratory Rate Blood Pressure Pulse Oximetry Oxygen Delivery Room Air Intake/Output Intake/Output: Intake & Output 10/04/24 10/05/24 10/06/24 10/07/24 23:59 23:59 23:59 23:59 Intake Total 1400 2893.3 3906.6 1620 Balance 1400 2893.3 3906.6 1620 Meds/Results Medications: Active Medications Generic Name Dose Route Start Last Admin Trade Name Freq PRN Reason Stop Dose Admin Acetaminophen 650 mg 10/04/24 15:41 10/05/24 11:28 Acetaminophen 325 Mg Tablet PO 650 mg Q6H PRN Administration Mild Pain (1-3) or Fever Hydrocodone Bitart/Acetaminophen 1 tab 10/04/24 15:41 10/07/24 03:59 Hydrocodone/Acetaminophen (*Crx) 5-325 Mg Tablet PO 1 tab Q6H PRN Administration Pain Rated 4-6 Alendronate Sodium 70 mg 10/09/24 06:30 Alendronate Sodium 70 Mg Tablet PO Tu@0630 ELSY Ergocalciferol 50,000 units 10/08/24 09:00 Ergocalciferol 50,000 Units Capsule PO Mo@0900 ELSY Finasteride 5 mg 10/05/24 09:00 10/07/24 08:48 Finasteride 5 Mg Tablet PO 5 mg DAILY ELSY Administration Sodium Chloride 1,000 mls @ 125 mls/hr 10/04/24 15:05 10/07/24 04:01 Normal Saline Iv IV CONT 125 mls/hr .Q8H ELSY Administration Melatonin 5 mg 10/05/24 20:14 10/05/24 22:12 Melatonin 5 Mg Tablet PO 5 mg HS PRN Administration Sleep Metoclopramide HCl 10 mg 10/05/24 11:30 10/07/24 06:09 Metoclopramide Hcl Inj 10 Mg/2 Ml Vial IV PUSH 10 mg AC ELSY Administration Morphine Sulfate 2 mg 10/04/24 15:06 Morphine Sulfate (*Crx) 2 Mg/Ml Inj IV PUSH Q4H PRN Abdominal Cramping Pantoprazole Sodium 40 mg 10/04/24 21:00 10/07/24 08:48 Pantoprazole Sodium Iv 40 Mg Vial IV PUSH 40 mg Q12HR ELSY Administration Polyethylene Glycol 119 gm 10/08/24 07:00 Polyethylene Glycol 3350 238 Gm Bottle PO 10/08/24 07:01 ONCE ONE Polyethylene Glycol 119 gm 10/08/24 02:00 Polyethylene Glycol 3350 238 Gm Bottle PO 10/08/24 02:01 ONCE ONE Tamsulosin HCl 0.4 mg 10/04/24 21:15 10/06/24 20:41 Tamsulosin Hcl 0.4 Mg Capsule PO 0.4 mg HS ELSY Administration Radiology Results: ITS Impressions Abdomen/Pelvis CT 10/04/24 13:36 IMPRESSION: 1. No acute intra-abdominal/pelvic process. 2. 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 3. Prostatomegaly. 4. Multiple chronic compression and burst fractures in the lumbar and lower thoracic spine. Labs Labs: Laboratory Results - last 24 hr 10/07/24 04:43 WBC 5.6 RBC 3.77 L Hgb 11.5 L Hct 34.7 L MCV 92.0 MCH 30.5 MCHC 33.1 RDW 13.8 Plt Count 254 MPV 8.5 Immature Gran % (Auto) 0.4 Neut % (Auto) 64.8 Lymph % (Auto) 16.6 L [place] % (Auto) 10.9 H Eos % (Auto) 6.4 H Baso % (Auto) 0.9 Lymph # (Auto) 0.93 [place] # (Auto) 0.6 Eos # (Auto) 0.4 H Baso # (Auto) 0.1 Abs Immat Gran (auto) 0.02 Absolute Neuts (auto) 3.6 Absolute Nucleated RBC 0.000 Nucleated RBC % 0.0 PT 15.0 H INR 1.2 Sodium 135 L Potassium 4.0 Chloride 104 Carbon Dioxide 28 Anion Gap 3 L BUN 4 L Creatinine 0.70 Estim Creat Clear Calc 56 Estimated GFR > 60 Glucose 110 Calcium 8.3 L
[2024-10-07 14:00] VITALS: BP 126/68; PULSE 75; RESP 18; TEMP 36.6; O2SAT 100
[2024-10-07] MEDS: TAMSULOSIN HCL 0.4 MG CAPSULE PO (20:17)
[2024-10-07 21:19] VITALS: BP 139/76; PULSE 80; RESP 18; TEMP 36.7; O2SAT 99
[2024-10-08] MEDS: HYDROcodone/acetaminophen (*CRX) 5-325 MG TABLET 1 TAB PO ×2 (01:59→14:22)
[2024-10-08] MEDS: polyethylene glycoL 3350 238 GM BOTTLE 119 GM PO ×2 (02:00→05:23)
[2024-10-08] MEDS: SODIUM CHLORIDE 0.9% IV 1,000 ML 125 ML IV CONT (05:22)
[2024-10-08 05:45] VITALS: BP 148/86; PULSE 95; RESP 18; TEMP 36.7; O2SAT 97
[2024-10-08 06:16] LABS: Basophils Absolute Auto 0.1 K/mm3 (0.0-0.1); Basophils Percent Auto 1.1 % (0.2-1.2); Eosinophils Absolute Auto 0.3 K/mm3 (0-0.3); Eosinophils Percent Auto 5.7 % (0-4.4); Hematocrit 35.6 % (42.0-52.0); Hemoglobin 11.8 g/dL (14.0-18.0); Immature Granulocyte Absolute 0.02 K/mm3 (0.00-0.031); Immature Granulocyte Percent A 0.5 % (0-0.5); Lymphocytes Absolute Auto 0.93 K/mm3 (0.9-3.2); Lymphocytes Percent Auto 21.2 % (18.3-44.2); Mean Corpuscular HGB Conc 33.1 g/dl (32-36); Mean Corpuscular Hemoglobin 30.3 pg (26-34); Mean Corpuscular Volume 91.3 fl (80-100); Mean Platelet Volume 8.7 fl (7.4-10.4); Monocytes Absolute Auto 0.7 K/mm3 (0.1-0.6); Monocytes Percent Auto 16.2 % (2.6-8.5); Neutrophils Absolute Auto 2.4 K/mm3 (1.3-6.7); Neutrophils Percent Auto 55.3 % (45.5-73.1); Platelet Count Result 217 k/mm3 (150-375); Red Cell Distribution Width 13.7 % (11.5-14.5); White Blood Count 4.4 K/mm3 (4.5-10.0)
[2024-10-08 06:23] LABS: Anion Gap 4 mmol/L (4-12); Calcium 8.3 mg/dL (8.4-10.2); Carbon Dioxide 28 mmol/L (22-30); Chloride 102 mmol/L (98-107); Estimated CRCL calculation 64 ml/min; Estimated Glomerular Filt Rate > 60; Glucose 101 mg/dL (65-110); Potassium 3.4 mmol/L (3.4-5.0); Sodium 134 mmol/L (137-145)
[2024-10-08 06:33] LABS: Blood Urea Nitrogen < 2 mg/dL (9-20)
--- NOTE | 2024-10-08 07:27 | PM.IMPN ---
Progress Note: A&P Assessment and Plan (1) GI bleed: Qualifiers: GI bleed type/associated pathology: unspecified gastrointestinal hemorrhage type Qualified Code(s): K92.2 - Gastrointestinal hemorrhage, unspecified Code(s): K92.2 - Gastrointestinal hemorrhage, unspecified Status: Acute Assessment and Plan: - no findings on CT abd/pelvis as etiology for GI bleed - ETOH use: none - Hgb 13.9, trend - started on Pantoprazole 40 mg BID - GI consulted EGD and colonoscopy Tuesday - clear liquid diet Now NPO at midnight (2) Abdominal pain: Qualifiers: Abdominal location: epigastric Qualified Code(s): R10.13 - Epigastric pain Code(s): R10.9 - Unspecified abdominal pain Status: Acute Assessment and Plan: - CT abdomen/pelvis: 1. No acute intra-abdominal/pelvic process. 2. 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 3. Prostatomegaly. 4. Multiple chronic compression and burst fractures in the lumbar and lower thoracic spine. - associated nausea and vomiting, antiemetics p.r.n. - given maroon bowel movements and positive Hemoccult, suspect GI bleed as etiology for nausea/vomiting & epigastric pain. see above. - GI consulted (3) Depression: Qualifiers: Depression Type: unspecified Qualified Code(s): F32.A - Depression, unspecified Code(s): F32.A - Depression, unspecified Status: Acute Assessment and Plan: - daughter feels patient has been more depressed, referred to PCP for initiation of depression medications Plan Diet: Clear liquids, NPO midnight GI Prophylaxis: Pantoprazole b.i.d. DVT Prophylaxis: SCDs Lines: Peripheral Code Status: Full code Subjective Date/time seen: 10/08/24 07:27 Interval history: the patient's daughter is at bedside patient denies any nausea vomiting abdominal pain the daughter acts as a medical economics consultant plan for EGD and scope today by GI, patient's hemoglobin has been stable while in-house Review of Systems Review of Systems: All systems reviewed & are unremarkable except as noted in HPI and below Exam Narrative: General - Awake and alert. No acute distress Eyes - PERRLA, EOM intact ENT - No thrush, No erythema Neck - No noticeable or palpable swelling Lymph Nodes - No lymphadenopathy Cardiovascular - RRR no m/r/g, no JVD Lungs: Clear to auscultation, No wheezing, use of accessory muscles, no crackles Skin - Skin warm and dry, no wounds or rashes Abdomen - Normal bowel sounds, abdomen soft and nontender Extremities - No edema, cyanosis or clubbing Musculoskeletal - 5/5 strength, normal range of motion, no swollen or erythematous joints. Low back minimal tenderness to palpation Neurological ? Alert and oriented x 3, CN 2-12 grossly intact. Psych: Normal mood and affect Const: General: comfortable and no acute distress Other: , male, cachectic appearance, frail, elderly HENMT: Face/Nose/Sinus: Normal nares present Mouth: Yes moist mucous membranes and Yes dry mucous membranes Eyes: General: appearance normal, both eyes and all related structures Sclera: sclerae normal Pupils: Equal, round and reactive pupils present EOM: EOMs intact bilaterally Resp: Effort & Inspection: normal respiratory effort Auscultation: clear to auscultation bilaterally Cardio: Rate: regular rate Rhythm: regular rhythm Other: S1-S2 present without murmur, rub, ectopy GI: Other: Abdomen soft, nondistended, nontender. Normoactive bowel sounds in all quadrants. Skin: General skin exam: normal color and no rashes or lesions noted Wounds: no wounds Neuro: Cranial nerves: Yes Equal, round and reactive pupils present Speech: normal speech Motor exam (neuro): 5/5 motor strength present throughout Sensory Exam: normal sensation Other: A&O x4 Extrem: General: normal to inspection Psych: Mental Status: mental status grossly normal Affect: normal affect Other: Fair insight and judgment Objective Data Vital Signs Vital Signs: Vital Signs - 24 hr 10/07/24 08:50 10/07/24 14:00 10/07/24 21:19 Temperature 97.8 F 98.1 F Pulse Rate 75 80 Respiratory Rate 18 18 Blood Pressure 126/68 139/76 Pulse Oximetry 100 99 Oxygen Delivery Room Air 10/08/24 05:45 Temperature 98.1 F Pulse Rate 95 Respiratory Rate 18 Blood Pressure 148/86 H Pulse Oximetry 97 Oxygen Delivery Intake/Output Intake/Output: Intake & Output 10/05/24 10/06/24 10/07/24 10/08/24 23:59 23:59 23:59 23:59 Intake Total 2893.3 3906.6 4168.3 2300 Balance 2893.3 3906.6 4168.3 2300 Meds/Results Medications: Active Medications Generic Name Dose Route Start Last Admin Trade Name Freq PRN Reason Stop Dose Admin Acetaminophen 650 mg 10/04/24 15:41 10/05/24 11:28 Acetaminophen 325 Mg Tablet PO 650 mg Q6H PRN Administration Mild Pain (1-3) or Fever Hydrocodone Bitart/Acetaminophen 1 tab 10/04/24 15:41 10/08/24 01:59 Hydrocodone/Acetaminophen (*Crx) 5-325 Mg Tablet PO 1 tab Q6H PRN Administration Pain Rated 4-6 Alendronate Sodium 70 mg 10/09/24 06:30 Alendronate Sodium 70 Mg Tablet PO Tu@0630 ELSY Ergocalciferol 50,000 units 10/08/24 09:00 Ergocalciferol 50,000 Units Capsule PO Mo@0900 ELSY Finasteride 5 mg 10/05/24 09:00 10/07/24 08:48 Finasteride 5 Mg Tablet PO 5 mg DAILY ELSY Administration Sodium Chloride 1,000 mls @ 125 mls/hr 10/04/24 15:05 10/08/24 05:22 Normal Saline Iv IV CONT 125 mls/hr .Q8H ELSY Administration Melatonin 5 mg 10/05/24 20:14 10/05/24 22:12 Melatonin 5 Mg Tablet PO 5 mg HS PRN Administration Sleep Metoclopramide HCl 10 mg 10/05/24 11:30 10/08/24 05:25 Metoclopramide Hcl Inj 10 Mg/2 Ml Vial IV PUSH Not Given AC ELSY Morphine Sulfate 2 mg 10/04/24 15:06 Morphine Sulfate (*Crx) 2 Mg/Ml Inj IV PUSH Q4H PRN Abdominal Cramping Pantoprazole Sodium 40 mg 10/04/24 21:00 10/07/24 20:18 Pantoprazole Sodium Iv 40 Mg Vial IV PUSH 40 mg Q12HR ELSY Administration Tamsulosin HCl 0.4 mg 10/04/24 21:15 10/07/24 20:17 Tamsulosin Hcl 0.4 Mg Capsule PO 0.4 mg HS ELSY Administration Radiology Results: ITS Impressions Abdomen/Pelvis CT 10/04/24 13:36 IMPRESSION: 1. No acute intra-abdominal/pelvic process. 2. 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 3. Prostatomegaly. 4. Multiple chronic compression and burst fractures in the lumbar and lower thoracic spine. Labs Labs: Laboratory Results - last 24 hr 10/08/24 05:51 WBC 4.4 L RBC 3.90 L Hgb 11.8 L Hct 35.6 L MCV 91.3 MCH 30.3 MCHC 33.1 RDW 13.7 Plt Count 217 MPV 8.7 Immature Gran % (Auto) 0.5 Neut % (Auto) 55.3 Lymph % (Auto) 21.2 [place] % (Auto) 16.2 H Eos % (Auto) 5.7 H Baso % (Auto) 1.1 Lymph # (Auto) 0.93 [place] # (Auto) 0.7 H Eos # (Auto) 0.3 Baso # (Auto) 0.1 Abs Immat Gran (auto) 0.02 Absolute Neuts (auto) 2.4 Absolute Nucleated RBC 0.000 Nucleated RBC % 0.0 Sodium 134 L Potassium 3.4 Chloride 102 Carbon Dioxide 28 Anion Gap 4 BUN < 2 L Creatinine 0.60 L Estim Creat Clear Calc 64 Estimated GFR > 60 Glucose 101 Calcium 8.3 L Quality VTE Prophylaxis VTE prophylaxis: mechanical ordered
[2024-10-08] MEDS: PANTOPRAZOLE SODIUM IV 40 MG VIAL IV PUSH (09:44)
[2024-10-08 10:07] VITALS: BP 128/68; PULSE 94; RESP 26; TEMP 36.6; O2SAT 100
[2024-10-08] MEDS: LACTATED RINGERS 1,000 ML 150 ML IV CONT (10:12)
--- NOTE | 2024-10-08 10:48 | WPDANESEPPF ---
Anes - Initial Pre Proc Eval Procedure: Operation Date: 10/08/24 15:00 Proposed Procedures p Esophagogastroduodenoscopy & Colonoscopy - Florencio Monteiro MD Date/Time: 10/08/24 10:48 Surgeon: Rena Doyle APRN Pre Op Diagnosis: GI Bleed/Epigastric Pain Patient Data Age: 84 Gender: M Height: 1.63 m Weight: 60 kg Last Vital Signs Temp 36.6 C 10/08/24 10:07 Pulse 94 10/08/24 10:07 Resp 26 H 10/08/24 10:07 BP 128/68 10/08/24 10:07 Pulse Ox 100 10/08/24 10:07 O2 Del Method Room Air 10/08/24 10:07 FiO2 21 10/05/24 10:37 Allergies Allergy/AdvReac Type Severity Reaction Status Date / Time No Known Allergies Allergy Verified 10/04/24 12:01 Home Medications Medication Instructions Recorded Confirmed Type tamsulosin 0.4 mg capsule (Flomax) 0.4 mg PO HS #30 caps 08/03/21 10/04/24 Rx finasteride 5 mg tablet 5 mg PO DAILY 12/25/21 10/04/24 History alendronate 70 mg tablet 70 mg PO WEEKLY 10/04/24 10/04/24 History ergocalciferol (vitamin D2) 1,250 1,250 mcg PO WEEKLY 10/04/24 10/04/24 History mcg (50,000 unit) capsule (Vitamin D2) Laboratory Tests 10/08/24 05:51 WBC 4.4 L K/mm3 (4.5-10.0) RBC 3.90 L M/mm3 (4.6-6.20) Hgb 11.8 L g/dL (14.0-18.0) Hct 35.6 L % (42.0-52.0) MCV 91.3 fl (80-100) MCH 30.3 pg (26-34) MCHC 33.1 g/dl (32-36) RDW 13.7 % (11.5-14.5) Plt Count 217 k/mm3 (150-375) MPV 8.7 fl (7.4-10.4) Immature Gran % (Auto) 0.5 % (0-0.5) Neut % (Auto) 55.3 % (45.5-73.1) Lymph % (Auto) 21.2 % (18.3-44.2) [place] % (Auto) 16.2 H % (2.6-8.5) Eos % (Auto) 5.7 H % (0-4.4) Baso % (Auto) 1.1 % (0.2-1.2) Lymph # (Auto) 0.93 K/mm3 (0.9-3.2) [place] # (Auto) 0.7 H K/mm3 (0.1-0.6) Eos # (Auto) 0.3 K/mm3 (0-0.3) Baso # (Auto) 0.1 K/mm3 (0.0-0.1) Abs Immat Gran (auto) 0.02 K/mm3 (0.00-0.031) Absolute Neuts (auto) 2.4 K/mm3 (1.3-6.7) Absolute Nucleated RBC 0.000 K/mm3 (0.0-0.012) Nucleated RBC % 0.0 % (0.0-0.2) Sodium 134 L mmol/L (137-145) Potassium 3.4 mmol/L (3.4-5.0) Chloride 102 mmol/L (98-107) Carbon Dioxide 28 mmol/L (22-30) Anion Gap 4 mmol/L (4-12) BUN < 2 L mg/dL (9-20) Creatinine 0.60 L mg/dL (0.7-1.3) Estim Creat Clear Calc 64 ml/min Estimated GFR > 60 (59 - ) Glucose 101 mg/dL (65-110) Calcium 8.3 L mg/dL (8.4-10.2) Patient hx anesthesia problems: none Family hx anesthesia problems: none Results Review: All pre-operative results and documents have been reviewed as part of the pre-operative evaluation. [facility] Past Medical History Medical History Enlarged prostate Surgical History Surgical History History of kyphoplasty (~09/2024) @[facility] Social History Social History Smoking packs per day: 1 Smoking cigarettes per day: 20.0 Years smoked: 60 Smoking pack-years: 60.00 Smoking status: Current every day smoker Alcohol intake: never Substance use: never Do You Feel Safe in your Home?: Yes Lack of Transportation: No Lack of Food: Never True Current Housing: I Have Housing Concerned About Future Housing: No Difficulty Paying Gas/Electric Bills: No Difficulty Paying for Meds: No Currently Unemployed: No Education: Don't Know Difficulty w/ Childcare or Family Care: No Spiritual care concerns: No Anes - Eval Final PreProcedure Day of Procedure 10/08/24 10:48 Patient weight: thin Heart: regular rate and rhythm Lungs: decreased breath sounds Airway: Mallampati scale class II Neurological: alert and oriented Last oral intake: >/= 8 hours ASA classification: III Emergent: no Anesthetic plan: proceed Anesthesia type and monitoring: general GIVS and standard monitoring Results Review: All pre-operative results and documents have been reviewed as part of the pre-operative evaluation. Informed Consent: The patient's anesthetic plan and its attendant risks and benefits were discussed with the patient/family/POA. Questions were solicited and answers provided to the satisfaction of the patient/family/POA.
--- NOTE | 2024-10-08 11:02 | SUR.OPER ---
EGD start 105 end 1059, Colonoscopy start 110
[2024-10-08 11:20] VITALS: BP 91/50; PULSE 75; RESP 22; O2SAT 100
[2024-10-08 11:30] VITALS: BP 100/48; PULSE 79; RESP 22; O2SAT 100
[2024-10-08 11:40] VITALS: BP 108/50; PULSE 80; RESP 20; O2SAT 100
[2024-10-08] MEDS: ERGOCALCIFEROL 50,000 UNITS CAPSULE 50000 UNITS PO (11:52)
[2024-10-08] MEDS: FINASTERIDE 5 MG TABLET PO (11:52)
--- NOTE | 2024-10-08 12:50 | PM.DS ---
DS: Admitting Diagnosis Discharge Date 10/08/2024 Admitting Diagnosis GI bleed DS: Discharge Diagnosis Discharge Diagnosis (1) GI bleed: Qualifiers: GI bleed type/associated pathology: unspecified gastrointestinal hemorrhage type Qualified Code(s): K92.2 - Gastrointestinal hemorrhage, unspecified Code(s): K92.2 - Gastrointestinal hemorrhage, unspecified Status: Acute Assessment and Plan: - no findings on CT abd/pelvis as etiology for GI bleed - ETOH use: none - Hgb 13.9, trend - started on Pantoprazole 40 mg BID - GI consulted colonoscopy with no acute findings, patient may discharge per GI (2) Abdominal pain: Qualifiers: Abdominal location: epigastric Qualified Code(s): R10.13 - Epigastric pain Code(s): R10.9 - Unspecified abdominal pain Status: Acute Assessment and Plan: resolved - CT abdomen/pelvis: 1. No acute intra-abdominal/pelvic process. 2. 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 3. Prostatomegaly. 4. Multiple chronic compression and burst fractures in the lumbar and lower thoracic spine. - associated nausea and vomiting, antiemetics p.r.n. - given maroon bowel movements and positive Hemoccult, suspect GI bleed as etiology for nausea/vomiting & epigastric pain. see above. - GI consulted (3) Depression: Qualifiers: Depression Type: unspecified Qualified Code(s): F32.A - Depression, unspecified Code(s): F32.A - Depression, unspecified Status: Acute Assessment and Plan: - daughter feels patient has been more depressed, referred to PCP for initiation of depression medications Plan Diet: regular diet GI Prophylaxis: Pantoprazole b.i.d. DVT Prophylaxis: SCDs Lines: Peripheral Code Status: Full code DS: Summary Hospital Course Reason for hospitalization: GI bleed Hospital Course: 84 y/o M presents here with nausea and vomiting with PMH of enlarged prostate and recent kyphoplasty (3 weeks ago at [facility]). The patient presents here from home for further evaluation of nausea, vomiting, epigastric pain, and diarrhea. Patient is [place]ian-speaking. He and his daughter provided the following history, the patient reports onset of nausea, vomiting, diarrhea approximately 3 days ago. Emesis has been nonbloody and nonbilious. Did not have coffee ground appearance. Diarrhea also started on Gretchen. He had 2 bowel movements Tuesday, unable to quantify further. THen developed bleeding per rectum on Tuesday. Unclear if it was a large or small amount. No history of GI bleed. No alcohol use. No significant ibuprofen use. Has never undergone a colonoscopy. Due to nausea and vomiting patient has had poor p.o. intake since onset. Denies change in low urinary output. No daughter is also voicing concern that the patient has been severely depressed at late in for and would like discuss starting the patient on an antidepressant. She states he has been more quiet. Daughter does not believe he has had any weight loss or night sweats. Initial VS at presentation: 0 98.3? F, HR 100, RR 16, 113/67, and 96% on RA. ED workup showed: No leukocytosis, hemoglobin 13.9, platelet count 398, sodium 130, 2 creatinine 0.5 and GFR >60, glucose 117, lactic 3 3, and UA not suspicious for infection. Viral PCR negative. CT of the abdomen/pelvis showed no acute intra-abdominal/pelvic process, chronic interstitial lung disease at the bilateral lung bases, prostatomegaly, multiple chronic compression and burst fractures in lumbar and lower thoracic spine. patient was hemodynamically stable and I planned colonoscopy was done on Tuesday that showed no acute findings. While in the hospital patient had no signs acute bleeding, H&H was stable. Patient is safe for discharge after his colonoscopy with no need to follow-up outpatient with GI. Hospital course was uneventful. Status at Discharge Functional status at discharge: independent ambulation Time Spent with Patient Time attestation: Total time spent providing and/or coordinating discharge services: Exam Narrative: General - Awake and alert. No acute distress Eyes - PERRLA, EOM intact ENT - No thrush, No erythema Neck - No noticeable or palpable swelling Lymph Nodes - No lymphadenopathy Cardiovascular - RRR no m/r/g, no JVD Lungs: Clear to auscultation, No wheezing, use of accessory muscles, no crackles Skin - Skin warm and dry, no wounds or rashes Abdomen - Normal bowel sounds, abdomen soft and nontender Extremities - No edema, cyanosis or clubbing Musculoskeletal - 5/5 strength, normal range of motion, no swollen or erythematous joints. Low back minimal tenderness to palpation Neurological ? Alert and oriented x 3, CN 2-12 grossly intact. Psych: Normal mood and affect Const: General: comfortable and no acute distress Other: , male, cachectic appearance, frail, elderly HENMT: Face/Nose/Sinus: Normal nares present Mouth: Yes moist mucous membranes and Yes dry mucous membranes Eyes: General: appearance normal, both eyes and all related structures Sclera: sclerae normal Pupils: Equal, round and reactive pupils present EOM: EOMs intact bilaterally Resp: Effort & Inspection: normal respiratory effort Auscultation: clear to auscultation bilaterally Cardio: Rate: regular rate Rhythm: regular rhythm Other: S1-S2 present without murmur, rub, ectopy GI: Other: Abdomen soft, nondistended, nontender. Normoactive bowel sounds in all quadrants. Skin: General skin exam: normal color and no rashes or lesions noted Wounds: no wounds Neuro: Cranial nerves: Yes Equal, round and reactive pupils present Speech: normal speech Motor exam (neuro): 5/5 motor strength present throughout Sensory Exam: normal sensation Other: A&O x4 Extrem: General: normal to inspection Psych: Mental Status: mental status grossly normal Affect: normal affect Other: Fair insight and judgment DS: Data Data Completed and Pending Labs on day of discharge: Labs from last 24 hours 10/08/24 05:51 WBC 4.4 L RBC 3.90 L Hgb 11.8 L Hct 35.6 L MCV 91.3 MCH 30.3 MCHC 33.1 RDW 13.7 Plt Count 217 MPV 8.7 Immature Gran % (Auto) 0.5 Neut % (Auto) 55.3 Lymph % (Auto) 21.2 Glynn % (Auto) 16.2 H Eos % (Auto) 5.7 H Baso % (Auto) 1.1 Lymph # (Auto) 0.93 Glynn # (Auto) 0.7 H Eos # (Auto) 0.3 Baso # (Auto) 0.1 Abs Immat Gran (auto) 0.02 Absolute Neuts (auto) 2.4 Absolute Nucleated RBC 0.000 Nucleated RBC % 0.0 Sodium 134 L Potassium 3.4 Chloride 102 Carbon Dioxide 28 Anion Gap 4 BUN < 2 L Creatinine 0.60 L Estim Creat Clear Calc 64 Estimated GFR > 60 Glucose 101 Calcium 8.3 L Imaging Radiologist's impression: CT abdomen pelvis w con DATE: 10/04/2024 13:24 INDICATION: Generalized abdominal pain. TECHNIQUE: Computed tomography (CT) of the abdomen and pelvis was performed with 100 mL Omnipaque-350 intravenous contrast. Automated exposure control and iterative reconstruction technique were employed. The dose-length product was 222.93 mGy-cm. COMPARISON: 08/03/2021 FINDINGS: No significant change in peripheral irregular septal line thickening and associated honeycombing in the bilateral lower lungs consistent with usual interstitial pneumonia (UIP) pattern chronic interstitial lung disease. Heart size is normal. Atherosclerotic coronary artery calculi size. No pericardial or pleural effusion. There are a few subcentimeter low-attenuation hepatic cysts. Gallbladder, spleen, pancreas, bilateral adrenal glands and kidneys are normal. No abnormal bowel wall thickening or obstruction. Normal appendix. Bladder is normal. Prostatomegaly measuring 5.9 x 4.4 cm. No free intraperitoneal gas or fluid. No pathologically enlarged abdominal or pelvic lymphadenopathy. Chronic T8 compression fracture with change of prior vertebroplasty. Chronic appearing T10 compression fracture with 60% central vertebral body height loss and T11 burst with 80% central vertebral body height loss and 4 mm retropulsion resulting in mild central canal stenosis at this level. No interval changes in additional chronic L2 burst fracture with 60% central vertebral body height loss, 4 mm retropulsion resulting in mild central canal stenosis and T4 burst fracture with 80% central vertebral body height loss. IMPRESSION: 1. No acute intra-abdominal/pelvic process. 2. 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 3. Prostatomegaly. 4. Multiple chronic compression and burst fractures in the lumbar and lower thoracic spine. Discharge Plan Discharge Consulting providers: Otto Ortez Discharging Clinician: Sherry Kenyon Anticipated Discharge Date/Time: 10/08/24 12:55 Patient Disposition: Home, Self-Care Activity: may shower Diet: regular Discharge Instructions: Discharge instructions: Take medications as prescribed You were not started on any new medication You are activity as tolerated Monitor blood pressures Avoid social areas, you wear a mask when in social settings Encouraged to continue with yearly vaccinations Return to the emergency department if he developed sudden shortness of breath, chest pain, nausea, vomiting, upset stomach or intractable diarrhea Return to the emergency department if you develop fever greater than 101.5 Follow-up with: Your primary care physician within 1-2 weeks for post hospitalization check up you do not need to follow-up with GI after hospitalization Thank you for choosing [facility] for your healthcare needs Patient Instructions: Gastrointestinal Bleeding (DC) Patient Language: Tunisian Stand Alone Forms: General Discharge Information Follow-up/Referrals: UNKNOWN,DOCTOR [Primary Care Provider] - Discharge Medications: Continued finasteride 5 mg tablet 5 mg PO DAILY tamsulosin [Flomax] 0.4 mg capsule 0.4 mg PO HS Qty: 30 0RF alendronate 70 mg tablet 70 mg PO WEEKLY Rx Instructions: Patient states he takes on Tuesdays ergocalciferol (vitamin D2) [Vitamin D2] 1,250 mcg (50,000 unit) capsule 1,250 mcg PO WEEKLY Rx Instructions: Patient states he takes on mondays Date of admission: 10/05/24 07:54 Primary Care Provider: UNKNOWN,DOCTOR Admitting Provider: Terrell Pham Attending physician on admission: Rena Doyle Condition: Stable Quality VTE Prophylaxis VTE prophylaxis: mechanical ordered If No VTE Prophylaxis Answer both mechanical and pharmacologic: Reason no mechanical VTE proph: medical contraindication Hospitalist MIPS Heart Failure (Exclusion) Patient has history of Heart Transplant or Left Ventricular Assistive Device?: No IF YES, STOP HERE Heart Failure (Qualifier) Patient has current or prior documentation of LVEF less than or equal to 40%, or mod/servere depressed LVSF?: No IF NO, STOP HERE
== END 2024-10-08 15:03 | disposition home or self-care (01) | DRG 378 ==
LOC: ANHED 14:55 → ANH2MED 15:35
PROVIDERS: Internal Medicine Gastroenterology; Nurse Practitioner Acute Care; Student in an Organized Health Care Education/Training Program; Admitting Provider Internal Medicine; Emergency Provider Emergency Medicine; Visit Provider Nurse Practitioner Gerontology
PROC: 0DJ08ZZ Inspection of Upper Intestinal Tract, Via Natural or Artificial Opening Endoscopic (ICD-10-PCS; CPT 43235; principal; 2024-10-08 15:00)
DX: K92.2 Gastrointestinal hemorrhage, unspecified (principal); E87.1 Hypo-osmolality and hyponatremia; K57.30 Diverticulosis of large intestine without perforation or abscess without bleeding; K64.8 Other hemorrhoids; R31.9 Hematuria, unspecified; F32.A Depression, unspecified; R10.13 Epigastric pain; F17.210 Nicotine dependence, cigarettes, uncomplicated; Z20.822 Contact with and (suspected) exposure to COVID-19
CPT/HCPCS: 36415; 74177; 80048; 80053; 81001; 83540; 83550; 83605; 83690; 85014; 85018; 85025; 85610; 87637; 96361; 96374; 96375; 99285; A9270; G0378; J2003; J2405; J2470; J2704; J2765; J7030; J7120; Q9967